=== PATIENT | female | born 1930 | race Caucasian/White ===

== ENCOUNTER 2017-10-08 10:49 | Inpatient (IN) | payer OTHER ==
[2017-10-08] MEDS ORDERED: morphine CARPU-JECT 2 MG/1 ML DISP.SYRIN IVPUSH ONE (11:34)
[2017-10-08 12:12] LABS: URINE APPEARANCE CLOUDY; URINE BILIRUBIN NEGATIVE (<2.0 mg/dL); URINE BLOOD NEGATIVE (NEGATIVE); URINE COLOR YELLOW; URINE GLUCOSE (UA) NEGATIVE (NEGATIVE); URINE KETONE NEGATIVE (NEGATIVE); URINE NITRITE NEGATIVE (NEGATIVE); URINE PROTEIN NEGATIVE (NEGATIVE); URINE UROBILINOGEN NEGATIVE mg/dL (0.2-1.0)
--- NOTE | 2017-10-08 12:14 | PDOC ---
History of Present Illness - History of Present Illness Initial Comments: 10/08/17 12:18 The patient is a 86 year old female, from assisted living facility, with a significant past medical history of atrial fibrillation, dementia, congestive heart failure, hypertension, arthritis, who presents to the emergency department via EMS with, left lower extremity pain beginning yesterday morning. The patient states the left leg pain was present upon waking up. She denies any recent injury or trauma. The patient states she noticed her lower extremities are more swollen than usual. The patient also endorses slight dyspnea and chest discomfort. As per EMS the patient stopped taking Coumadin 2 days ago secondary to elevated INR. She denies recent fevers, chills, headache or dizziness. She denies recent nausea, vomit, diarrhea or constipation. She denies recent dysuria, frequency, urgency or hematuria. Allergies: NKA <Jin Max - Last Filed: 10/08/17 15:43> - General History Source: Patient, EMS Exam Limitations: No Limitations <Jt Cortez - Last Filed: 10/08/17 16:10> - General Chief Complaint: Pain Stated Complaint: LEFT PAIN Time Seen by Provider: 10/08/17 11:10 Past History <Jin Max - Last Filed: 10/08/17 15:43> - Past Medical History Cardiac Disorders: Yes (afib) COPD: No Dementia: Yes HTN: Yes - Suicide/Smoking/Psychosocial Hx Smoking History: Never smoked Have you smoked in the past 12 months: No Information on smoking cessation initiated: No Hx Alcohol Use: No Drug/Substance Use Hx: No Substance Use Type: None <Jt Cortez - Last Filed: 10/08/17 16:10> - Past Medical History Allergies/Adverse Reactions: Allergies Allergy/AdvReac Type Severity Reaction Status Date / Time No Known Allergies Allergy Verified 10/08/17 11:05 Home Medications: Ambulatory Orders Chondroitin Sulfate A Sodium [Chondroitin Sulfate Sodium] 500 mg PO DAILY Citalopram Hydrobromide [Celexa -] 10 mg PO DAILY 10/08/17 Cyanocobalamin [Vitamin B12 -] 1,000 mcg PO DAILY 10/08/17 Digoxin [Lanoxin -] 0.125 mg PO DAILY 10/08/17 Donepezil HCl [Aricept] 10 mg PO DAILY 04/10/18 Midodrine HCl 2.5 mg PO DAILY 10/08/17 Warfarin Sodium [Coumadin] 4 mg PO DAILY 10/08/17 Review of Systems - Review of Systems Comments:: 10/08/17 12:18 GENERAL/CONSTITUTIONAL: No fever or chills. No weakness. HEAD, EYES, EARS, NOSE AND THROAT: No change in vision. No ear pain or discharge. No sore throat. CARDIOVASCULAR: +Chest discomfort. +Shortness of breath. +Leg swelling. RESPIRATORY: No cough, wheezing, or hemoptysis. GASTROINTESTINAL: No nausea, vomiting, diarrhea or constipation. GENITOURINARY: No dysuria, frequency, or change in urination. MUSCULOSKELETAL: +Left lower extremity pain. No neck or back pain. SKIN: No rash NEUROLOGIC: No headache, vertigo, loss of consciousness, or change in strength/ sensation. ENDOCRINE: No increased thirst. No abnormal weight change. HEMATOLOGIC/LYMPHATIC: No anemia, easy bleeding, or history of blood clots. ALLERGIC/IMMUNOLOGIC: No hives or skin allergy. <Jin Max - Last Filed: 10/08/17 15:43> *Physical Exam - Vital Signs Last Vital Signs Temp Pulse Resp BP Pulse Ox 97.8 F 89 22 117/89 100 10/08/17 11:06 10/08/17 11:06 10/08/17 11:06 10/08/17 11:06 10/08/17 11:06 - Physical Exam Comments: 10/08/17 12:21 GENERAL: Awake, alert, and fully oriented, in no acute distress HEAD: No signs of trauma EYES: PERRLA, EOMI, sclera anicteric, conjunctiva clear NECK: Normal ROM, supple. LUNGS: Breath sounds equal, clear to auscultation bilaterally. No wheezes, and no crackles HEART: Regular rate and rhythm, normal S1 and S2, no murmurs, rubs or gallops ABDOMEN: Soft, nontender. No guarding, no rebound. EXTREMITIES: +Left lower extremity thigh and knee tender to palpation. Full range of motion left knee and hip. Sensation intact throughout. +Left lower extremity edema. NEUROLOGICAL: Cranial nerves II through XII grossly intact. Normal speech. SKIN: Warm, Dry, normal turgor, no rashes or lesions noted. <Jin Max - Last Filed: 10/08/17 15:43> - Vital Signs Last Vital Signs Temp Pulse Resp BP Pulse Ox 97.8 F 89 22 117/89 100 10/08/17 11:06 10/08/17 11:06 10/08/17 11:06 10/08/17 11:06 10/08/17 11:06 <Jt Cortez - Last Filed: 10/08/17 16:10> Heart Score/ECG Review #1 ECG reviewed & interpreted by me at: 12:05 10/08/17 12:14 NSR 76, left axis deviation, nonspecific intraventricular block, Q wave V1-V2, no std/mi, QTC 459 msec <Jt Cortez - Last Filed: 10/08/17 16:10> ED Treatment Course - LABORATORY CBC & Chemistry Diagram: 10/08/17 12:14 10/08/17 12:14 - RADIOLOGY Radiograph Interpretation: 10/08/17 15:43 EXAM#: TYPE/EXAM: RESULT: [id number] US/DUPLEX VASCUL US-1 LEG HISTORY PROVIDED: Pain and swelling left lower extremity. Real time and doppler evaluation of the left lower extremity demonstrates the following: There is no evidence of deep venous thrombosis within the common, deep and superficial femoral veins, as well as the popliteal and posterior tibial veins. The greater saphenous vein is also patent. These veins are fully compressible, as well. There is a Jenkins's cyst within the left popliteal fossa which measures 4.2 x 2.0 x 1.2 cm. IMPRESSION: 1. No evidence of deep venous thrombosis. 2. Jenkins's cyst. Reported By: Bert Albrecht MD 10/08/17 15:44 EXAM#: TYPE/EXAM: RESULT: [id number] CT/CHEST CTA HISTORY PROVIDED: Chest pain. TECHNIQUE: Sequential axial images were obtained from the thoracic inlet through the domes of the diaphragm following the administration of intravenous contrast material. CTA pulmonary embolism protocol was utilized, including coronal and oblique coronal MIP images. There is good opacification of the central pulmonary vasculature with no filling defects suspicious for pulmonary embolism. The lung vera are free of pulmonary masses, areas of acute consolidation or pleural effusions. No mediastinal masses, fluid collections or lymphadenopathy are identified. The heart is not significantly enlarged. Evaluation of the upper abdomen demonstrates no acute abnormalities. IMPRESSION: No evidence of pulmonary embolism or acute pathology within the chest. Reported By: Bert Albrecht MD 10/08/17 15:45 EXAM#: TYPE/EXAM: RESULT: [id number] RAD/HIP PELVIS-LEFT RAD/KNEE 3 POS-LEFT HISTORY PROVIDED: Leg pain AP and lateral projections of the pelvis, left hip and knee reveals no evidence of fracture, dislocation or acute bone or joint abnormalities. Mild to moderate degenerative changes are noted about the hip and knee joints. There are calcified loose bodies within the suprapatellar bursa. IMPRESSION: Mild to moderate degenerative arthritis with no fracture or acute bone or joint abnormalities. Reported By: Bert Albrecht MD 10/08/17 15:46 EXAM#: TYPE/EXAM: RESULT: [id number] RAD/CHEST X-RAY PORTABLE* HISTORY PROVIDED: Chest pain. A single frontal portable projection of the chest at 12:12 PM is submitted. The heart size is within normal limits. Median sternotomy sutures, mediastinal surgical clips and a prosthetic aortic valve are identified. The lung vera are free of pulmonary infiltrates or pleural effusions. There is tortuosity and calcification of the thoracic aorta and degenerative changes of the thoracic spine. IMPRESSION: No acute disease. <Jin Max - Last Filed: 10/08/17 15:43> - LABORATORY CBC & Chemistry Diagram: 10/08/17 12:14 10/08/17 12:14 - RADIOLOGY Radiology Studies Ordered: Category Date Time Status CHEST CTA [CT] Stat CT Scan 10/08/17 11:33 Ordered CHEST X-RAY PORTABLE* [RAD] Stat Radiology 10/08/17 11:27 Ordered HIP & PELVIS-LEFT [RAD] Stat Radiology 10/08/17 11:33 Ordered KNEE 3 POS-LEFT [RAD] Stat Radiology 10/08/17 11:33 Ordered DUPLEX VASCUL US-1 LEG [US] Stat Ultrasound 10/08/17 11:33 Ordered <Jt Cortez - Last Filed: 10/08/17 16:10> Medical Decision Making - Medical Decision Making 10/08/17 12:07 A portion of this note was documented by scribe services under my direction. I have reviewed the details of the note, within reason, and agree with the documentation with the following case summary and management plan written by me. Patient treated in the ED. Nursing notes are reviewed and incorporated into the medical decision-making. Vital signs reviewed. Peripheral IV access obtained by the nurse, laboratory studies are drawn and sent, reviewed and interpreted by myself. Vital Signs Temp Pulse Resp BP Pulse Ox 97.8 F 89 22 117/89 100 10/08/17 11:06 10/08/17 11:06 10/08/17 11:06 10/08/17 11:06 10/08/17 11:06 86-year-old female with history of dementia, atrial fibrillation on Coumadin, digoxin, congestive heart failure, hypertension presents with left lower extremity pain and chest pain and shortness of breath. 2 days ago, the patient' s INR was reportedly elevated so the Coumadin was temporarily held for 2 days. This morning, the patient has started to complain of left lower extremity pain and swelling particularly around left knee. Denies any fevers or chills but the patient reports having chest discomfort but unable to characterize any further. Patient states that she is short of breath but thinks so secondary to her left lower extremity pain. Denies falls or traumas. Given her cardiac history, we'll need to further investigate this. We'll obtain radiographs of the left hip and left knee to rule out bony injury. We'll obtain a duplex of the left lower extremity to rule out DVT. We'll obtain a CAT scan the chest to rule out pulmonary embolism. Labs to rule out myocardial infarction. Pain control. Ultimately, the patient should be admitted to the hospital for further evaluation. 10/08/17 14:39 Pt's daughter Evelina Mei cell [phone], home [phone]. She is aware of the patient's condition and UTI. Also consents for IV contrast for CT scan. 10/08/17 16:08 CBC, BMP 10/08/17 12:14 10/08/17 12:14 CMP Sodium 142 mmol/L (136-145) 10/08/17 12:14 Potassium 3.9 mmol/L (3.5-5.1) 10/08/17 12:14 Chloride 106 mmol/L (98-107) 10/08/17 12:14 Carbon Dioxide 25 mmol/L (21-32) 10/08/17 12:14 Anion Gap 11 (8-16) 10/08/17 12:14 BUN 22 mg/dL (7-18) H 10/08/17 12:14 Creatinine 0.9 mg/dL (0.55-1.02) 10/08/17 12:14 Creat Clearance w eGFR 59.51 (>60) 10/08/17 12:14 Random Glucose 77 mg/dL (74-106) 10/08/17 12:14 Calcium 8.9 mg/dL (8.5-10.1) 10/08/17 12:14 Phosphorus 1.5 mg/dL (2.5-4.9) L 10/08/17 12:14 Magnesium 2.0 mg/dL (1.8-2.4) 10/08/17 12:14 Total Bilirubin 1.5 mg/dL (0.2-1.0) H 10/08/17 12:14 AST 29 U/L (15-37) 10/08/17 12:14 ALT 18 U/L (12-78) 10/08/17 12:14 Alkaline Phosphatase 66 U/L (45-117) 10/08/17 12:14 Creatine Kinase 157 IU/L (26-192) 10/08/17 12:14 Creatine Kinase Index 0.6 % (0.0-5.0) 10/08/17 12:14 CK-MB (CK-2) 1.083 ng/mL (0.5-3.6) 10/08/17 12:14 Troponin I < 0.02 ng/ml (0.00-0.05) 10/08/17 12:14 B-Natriuretic Peptide 426.11 pg/ml (5-450) 10/08/17 12:14 Total Protein 7.0 g/dl (6.4-8.2) 10/08/17 12:14 Albumin 3.3 g/dl (3.4-5.0) L 10/08/17 12:14 Urine Test Results Urine Color Yellow 10/08/17 12:00 Urine Appearance Cloudy 10/08/17 12:00 Urine pH 7.0 (5.0-8.0) 10/08/17 12:00 Ur Specific [place] 1.014 (1.001-1.035) 10/08/17 12:00 Urine Protein Negative (NEGATIVE) 10/08/17 12:00 Urine Glucose (UA) Negative (NEGATIVE) 10/08/17 12:00 Urine Ketones Negative (NEGATIVE) 10/08/17 12:00 Urine Blood Negative (NEGATIVE) 10/08/17 12:00 Urine Nitrite Negative (NEGATIVE) 10/08/17 12:00 Urine Bilirubin Negative (<2.0 mg/dL) 10/08/17 12:00 Ur Leukocyte Esterase 3+ (NEGATIVE) H 10/08/17 12:00 Ur Epithelial Cells Rare /HPF (FEW) 10/08/17 12:00 Urine Mucus Rare 10/08/17 12:00 Radiographs of lower extremity, chest xray reviewed. No fractures. CT chest shows no PE. UA positive for UTI. Ceftriaxone ordered. Given chest pain and UTI, decision was made to admit the patient. Case discussed with DR. Lucia who accepts patient for telemetry admission. Case discussed in detail with admitting physician including history, physical exam and ancillary studies. Admitting physician has assumed care for the patient, will follow all pending diagnostics and will complete the evaluation and treatment. <Jt Cortez - Last Filed: 10/08/17 16:10> *DC/Admit/Observation/Transfer - Attestations Scribe Attestion: 10/08/17 12:22 Documentation prepared by Jin Max, acting as internist medical doctor md for tJ Cortez MD. <Jin Max - Last Filed: 10/08/17 15:43> - Discharge Dispostion Admit: Yes <Jt Cortez - Last Filed: 10/08/17 16:10> Diagnosis at time of Disposition: UTI (urinary tract infection) Qualifiers: Urinary tract infection type: site unspecified Hematuria presence: without hematuria Qualified Code(s): N39.0 - Urinary tract infection, site not specified Chest pain Qualifiers: Chest pain type: unspecified Qualified Code(s): R07.9 - Chest pain, unspecified - Discharge Dispostion Condition at time of disposition: Stable - Referrals Referrals: ON STAFF,NOT [Primary Care Provider] - - Patient Instructions - Post Discharge Activity
[2017-10-08 12:29] LABS: URINE LEUK ESTERASE 3+ (NEGATIVE)
[2017-10-08 12:32] LABS: EPI CELLS RARE /HPF (FEW); URINE MUCUS RARE
[2017-10-08 12:44] LABS: BASO % 1.1 % (0-2.0); EOS % 1.9 % (0-4.5); HEMATOCRIT 41.8 % (32.4-45.2); LYMPH % 17.1 % (8-40); MCHC 33.4 g/dl (32.0-36.0); MEAN CELL VOLUME 92.8 fl (80-96); MEAN PLT VOLUME 8.4 fl (7.5-11.1); MONO % 9.3 % (3.8-10.2); NEUT % 70.6 % (42.8-82.8); PLATELET COUNT 168 K/MM3 (134-434); RBC 4.51 M/mm3 (3.60-5.2); RDW 15.3 % (11.6-15.6); WHITE BLOOD COUNT 9.6 K/mm3 (4.0-10.0)
[2017-10-08] MEDS ORDERED: MORPHINE SULFATE 10 MG/1 ML *VIAL ONE (12:59)
[2017-10-08 13:13] LABS: PROTHROMBIN TIME (PATIENT) 49.7 SEC (9.98-11.88)
[2017-10-08 13:15] LABS: ACTIVATED PTT 54.7 SECONDS (26.9-34.4)
[2017-10-08 13:20] LABS: INR 4.4 (0.82-1.09)
[2017-10-08 13:28] LABS: ALBUMIN 3.3 g/dl (3.4-5.0); ANION GAP 11 (8-16); BILIRUBIN,TOTAL 1.5 mg/dL (0.2-1.0); BLOOD UREA NITROGEN 22 mg/dL (7-18); CALCIUM 8.9 mg/dL (8.5-10.1); CHLORIDE 106 mmol/L (98-107); CO2 25 mmol/L (21-32); CREATININE 0.9 mg/dL (0.55-1.02); GLUCOSE,RANDOM 77 mg/dL (74-106); PHOSPHOROUS 1.5 mg/dL (2.5-4.9); SGPT/ALT 18 U/L (12-78); SODIUM 142 mmol/L (136-145)
--- NOTE | 2017-10-08 13:33 | EKG ---
Test Reason : Blood Pressure : / mmHG Vent. Rate : 076 BPM Atrial Rate : 076 BPM P-R Int : 168 ms QRS Dur : 128 ms QT Int : 408 ms P-R-T Axes : 061 -44 032 degrees QTc Int : 459 ms NORMAL SINUS RHYTHM LEFT AXIS DEVIATION NON-SPECIFIC INTRA-VENTRICULAR CONDUCTION BLOCK CANNOT RULE OUT SEPTAL INFARCT , AGE UNDETERMINED ABNORMAL ECG NO PREVIOUS ECGS AVAILABLE Confirmed by MD Jorge Alberto, [place] ([id number]) on 10/08/2017 1:33:04 PM Referred By: Confirmed By:[place] Azul MD
[2017-10-08 13:40] LABS: ALK PHOS 66 U/L (45-117); N-TERMINAL BNP 426.11 pg/ml (5-450)
[2017-10-08 13:42] LABS: POTASSIUM 3.9 mmol/L (3.5-5.1); SGOT/AST 29 U/L (15-37)
[2017-10-08] MEDS ORDERED: CEFTRIAXONE 1,000 MG in DEXTROSE 5%-WATER - 50 ML IVPB ONE (14:01)
[2017-10-08] MEDS ORDERED: CEFTRIAXONE 1 GM/50 ML BAG ONE (15:39)
--- NOTE | 2017-10-08 18:15 | PN ---
Teaching Attending Note Name of Resident: Corrine Polk ATTENDING PHYSICIAN STATEMENT I saw and evaluated the patient. I reviewed the resident's note and discussed the case with the resident. I agree with the resident's findings and plan as documented with exceptions mentioned below. SUBJECTIVE: 86 yof with PMhx of Afib on coumadin, Bioprosthetic AVR, dementia, Osteoarthritis, orthostatic hypotension, recently with supratherapeutic INR around 5 , coumdin being held comes with sudden onset of left knee pain radiating to her left thigh. Per reports in Ed, patient reported transient chest pain and dyspnea, which patient, denies but history limited by her dementia. Denies any fevers, chills, nausea, vomiting, abdominal or urinary symptoms or back pain. Currently c/o left knee pain, pain with movements and ambulation. Denies any trauma. 12 point ROS attempted but limited given her dementia. OBJECTIVE: Vital Signs Period Temp Pulse Resp BP Sys/Potts Pulse Ox Last 24 Hr 97.8 F 89 22 117/89 100 Intake & Output 10/05/17 10/06/17 10/07/17 10/08/17 23:59 23:59 23:59 23:59 Weight 135 lb GENERAL: Awake, alert, and fully oriented, in no acute distress. HEAD: Normal with no signs of trauma. EYES: Pupils equal, round and reactive to light, extraocular movements intact, sclera anicteric, conjunctiva clear. No lid lag. EARS, NOSE, THROAT: Ears normal, nares patent, oropharynx clear without exudates. Moist mucous membranes. NECK:soft, supple, no JVD LUNGS: Breath sounds equal, clear to auscultation bilaterally. No wheezes, and no crackles. No accessory muscle use. HEART: S1S2 regular ABDOMEN: Soft, nontender, not distended, normoactive bowel sounds, no guarding, no rebound, no masses MUSCULOSKELETAL: swelling on medial and posterior aspect of left knee with limited ROm, upto 30 degrees, unable to passively flex both knees, however right knee with almost full active ROm, Left knee minimal active range of motion. Tenderness on medial and posterior aspect of left knee with no overlying warmth/crepitus or erythema UPPER EXTREMITIES: 2+ pulses, warm, well-perfused. No cyanosis. No clubbing. No peripheral edema. LOWER EXTREMITIES: 2+ pulses, warm, well-perfused. No calf tenderness. No peripheral edema. LLE exam as above NEUROLOGICAL: AA, oriented to self, not to place or time though answers questions appropriately, remote memory grossly intact, non focal exam except LLE limited by pian PSYCHIATRIC: Cooperative. Good eye contact. Appropriate mood and affect. SKIN: Warm, dry, normal turgor, no rashes or lesions noted, normal capillary refill. Home Medication List Medication Instructions Recorded Confirmed Type Chondroitin Sulfate A Sodium 500 mg PO DAILY 10/08/17 10/08/17 History [Chondroitin Sulfate Sodium] Citalopram Hydrobromide [Celexa -] 10 mg PO DAILY 10/08/17 10/08/17 History Cyanocobalamin [Vitamin B12 -] 1,000 mcg PO DAILY 10/08/17 10/08/17 History Digoxin [Lanoxin -] 0.125 mg PO DAILY 10/08/17 10/08/17 History Donepezil HCl [Aricept] 10 mg PO DAILY 10/08/17 10/08/17 History Midodrine HCl 2.5 mg PO DAILY 10/08/17 10/08/17 History Warfarin Sodium [Coumadin] 4 mg PO DAILY 10/08/17 10/08/17 History Active Medications Generic Name Dose Route Start Last Admin Trade Name Freq PRN Reason Stop Dose Admin Morphine Sulfate 1 mg 10/08/17 18:18 Morphine Sulfate IVPUSH Q4H PRN PAIN LEVEL 6-10 Laboratory Results - last 24 hr 10/08/17 10/08/17 10/08/17 12:00 12:14 12:14 WBC 9.6 RBC 4.51 Hgb 14.0 Hct 41.8 MCV 92.8 MCH 31.0 MCHC 33.4 RDW 15.3 Plt Count 168 MPV 8.4 Neutrophils % 70.6 Lymphocytes % 17.1 Monocytes % 9.3 Eosinophils % 1.9 Basophils % 1.1 PT with INR 49.70 H INR 4.40 H* PTT (Actin FS) 54.7 H Sodium Potassium Chloride Carbon Dioxide Anion Gap BUN Creatinine Creat Clearance w eGFR Random Glucose Calcium Phosphorus Magnesium Total Bilirubin AST ALT Alkaline Phosphatase Creatine Kinase Creatine Kinase Index CK-MB (CK-2) Troponin I B-Natriuretic Peptide Total Protein Albumin Urine Color Yellow Urine Appearance Cloudy Urine pH 7.0 Ur Specific [place] 1.014 Urine Protein Negative Urine Glucose (UA) Negative Urine Ketones Negative Urine Blood Negative Urine Nitrite Negative Urine Bilirubin Negative Urine Urobilinogen Negative Ur Leukocyte Esterase 3+ H Urine WBC (Auto) 319 Urine RBC (Auto) 8 Ur Epithelial Cells Rare Urine Mucus Rare Digoxin 10/08/17 12:14 WBC RBC Hgb Hct MCV MCH MCHC RDW Plt Count MPV Neutrophils % Lymphocytes % Monocytes % Eosinophils % Basophils % PT with INR INR PTT (Actin FS) Sodium 142 Potassium 3.9 Chloride 106 Carbon Dioxide 25 Anion Gap 11 BUN 22 H Creatinine 0.9 Creat Clearance w eGFR 59.51 Random Glucose 77 Calcium 8.9 Phosphorus 1.5 L Magnesium 2.0 Total Bilirubin 1.5 H AST 29 ALT 18 Alkaline Phosphatase 66 Creatine Kinase 157 Creatine Kinase Index 0.6 CK-MB (CK-2) 1.083 Troponin I < 0.02 B-Natriuretic Peptide 426.11 Total Protein 7.0 Albumin 3.3 L Urine Color Urine Appearance Urine pH Ur Specific [place] Urine Protein Urine Glucose (UA) Urine Ketones Urine Blood Urine Nitrite Urine Bilirubin Urine Urobilinogen Ur Leukocyte Esterase Urine WBC (Auto) Urine RBC (Auto) Ur Epithelial Cells Urine Mucus Digoxin 0.[address]/Left knee/left hip/pelvis/CXR results and images reviewed - sternal sutures, loose calcified bodies in prepatellar bursa , arthritis EKG septal infarct, intraventricular conduction delay, NSR 76, LAD LE doppler neg left sided DVT ASSESSMENT AND PLAN: 86 yof with pMHx of Bioprosthetic AVR, AFib on coumadin, osteoarthritis, dementia, orthostatic hypotension comes with supratherapeutic INR, left knee pain and swelling, Lower uncomplicated UTI and ?transient atypical Chest pain. -Left knee pain/swelling, ?prepatellar bursitis vs ruptured fuentes's cyst, hemarthrosis secondary to unwitnessed trauma on differential but low suspicion, unlikely septic arthritis given clincally stable, absence of fevers/ leucocoytosis/current knee exam. ?gout vs pseudogout - Lower uncomplicated UTI -Coumadin coagulopathy -?Transient atypical chest pain/dyspnea, neg CTA -Afib -Bioprosthetic AVR -?CHF -Orthostatic hypotension -Osteoarthritis -Dementia Plan: Orthopedic consult, knee brace, close monitoring, standing tylenol, low dose morphine prn. PT eval. Ceftriaxone day 1, urine/blood cultures sent, follow up. Renal function stable. Telemetry, cycle troponin. Unlikely ACS. Retrieve prior information as indicated Hold coumadin, daily INR. Continue midodrine, digoxin. DVTPPX, already supratherapeutic. Dispo need for inpatient monitoring from cardiac/orthopedic standpoint, IV antibiotics and safe disposition. Total admission time spent 55 min.
[2017-10-08] MEDS ORDERED: morphine SULFATE 4 MG/ML VIAL IVPUSH PRN ×2 (18:18→18:36)
[2017-10-08] MEDS ORDERED: ACETAMINOPHEN 325 MG TABLET (FP) PO PRN (18:33)
[2017-10-08] MEDS ORDERED: NAPH,MB-DB/K PH,MBDB POWDER PACKET PO ONE (19:00)
[2017-10-08] MEDS: ACETAMINOPHEN 325 MG TABLET (FP) PO SCH (19:58)
--- NOTE | 2017-10-08 21:14 | HP ---
CHIEF COMPLAINT: L leg pain PCP: Dr. Gareth Naidu ([phone]) Virtual Recruiter: Dr. Pablo Hatch ([phone]) Vascular Surgeon: Dr. Sergei Winn ([phone]) Informant: Daughter Evelina (HCP), Patient, ED chart HISTORY OF PRESENT ILLNESS: 86yo woman with PMH of Afib (on Coumadin), Bioprosthetic AVR (2002), frontotemporal dementia, orthostatic hypotension, recurrent UTIs, and arthritis who presents from assisted living facility with complaint of 1x day L knee pain and swelling. L knee pain is worse with movement and ambulation. Pt denies any trauma or prior injury to that joint. No h/o gout or pseudogout per daughter. Patient denies any urinary symptoms, including dysuria and polyuria. Per ED chart, patient endorsed mild dyspnea and chest pain, however currently denies. No fever, chills, nausea, vomiting, or abdominal pain. ER course was notable for: (1) CT Chest/ CTA r/o PE (2) L knee and pelvis XRAYs - calcified loose bodies in suprapatellar bursa; mild to moderate arthritis, no fracture or acute joint abnormalities (3) CXR - +sternotomy wires, AVR, no focal consolidation or infiltrate (4) LE Dopplers negative for LLE DVT Recent Travel: none PAST MEDICAL HISTORY: Afib FTD orthostatic hypotension arthritis recurrent UTIs - per daughter, uncomplicated and commonly treated with Keflex PAST SURGICAL HISTORY: bovine bioprosthetic Ao valve replacement - 2002 Social History: Last week moved to assisted living facility; previously living alone at home with [employer] 10hours/day. Smoking: Never Alcohol: none Drugs: none Family History: mother - multiple TIAs/CVAs, son- recurrent DVTs Allergies: NKDA HOME MEDICATIONS: Medication Instructions Recorded Chondroitin Sulfate A Sodium 500 mg PO DAILY 10/08/17 [Chondroitin Sulfate Sodium] Citalopram Hydrobromide [Celexa -] 10 mg PO DAILY 10/08/17 Cyanocobalamin [Vitamin B12 -] 1,000 mcg PO DAILY 10/08/17 Digoxin [Lanoxin -] 0.125 mg PO DAILY 10/08/17 Donepezil HCl [Aricept] 10 mg PO DAILY 10/08/17 Midodrine HCl 2.5 mg PO DAILY 10/08/17 Warfarin Sodium [Coumadin] 4 mg PO DAILY 10/08/17 REVIEW OF SYSTEMS: unable to be assessed due to MS PHYSICAL EXAMINATION Vital Signs - 24 hr 10/08/17 10/08/17 11:06 18:37 Temperature 97.8 F 98.5 F Pulse Rate 89 Pulse Rate [ 68 Apical] Respiratory 22 18 Rate Blood Pressure 117/89 Blood Pressure 125/80 [Right Arm] O2 Sat by Pulse 100 Oximetry (%) GENERAL: awake, alert, oriented x1 (knows birthday, location: "[facility]", [facility] is "[facility]", and year ""), nad HEENT: sclera anicteric, conjunctiva clear, oropharynx clear without exudates, mmm NECK: supple, no cervical LAD LUNGS: CTAB, no wheezes or rales appreciated HEART: rrr normal s1/s2, no JVD, +well healed midline sternal scar ABDOMEN: soft, NTND, +bowel sounds : no CVA or suprapubic ttp MUSCULOSKELETAL: L knee medial and posterior swelling, ttp in posterior fossa and lateral/medial patella, no erythema, warmth or effusion appreciated, L knee limited ROM due pain, R knee/hip ROM intact UPPER EXTREMITIES: 2+ radial pulses, wwp, no edema LOWER EXTREMITIES: 2+ DP pulses, wwp, no calf tenderness, no edema NEUROLOGICAL: Cranial nerves II-XII intact. sensation intact in distal extremities; motor strength 5/5 in RUE/RLE and LUE, refused to move LLE due to pain PSYCHIATRIC: +Confabulations, Cooperative. Good eye contact. Appropriate mood and affect. CBC, BMP 10/08/17 12:14 10/08/17 12:14 Hepatic Panel Total Bilirubin 1.5 mg/dL (0.2-1.0) H 10/08/17 12:14 AST 29 U/L (15-37) 10/08/17 12:14 ALT 18 U/L (12-78) 10/08/17 12:14 Alkaline Phosphatase 66 U/L (45-117) 10/08/17 12:14 Albumin 3.3 g/dl (3.4-5.0) L 10/08/17 12:14 Troponin, BNP 10/08/17 10/08/17 12:14 21:20 Troponin I < 0.02 < 0.02 B-Natriuretic Peptide 426.11 INR, PTT INR 4.40 (0.82-1.09) H* 10/08/17 12:14 Urine Test Results Urine Color Yellow 10/08/17 12:00 Urine Appearance Cloudy 10/08/17 12:00 Urine pH 7.0 (5.0-8.0) 10/08/17 12:00 Ur Specific [place] 1.014 (1.001-1.035) 10/08/17 12:00 Urine Protein Negative (NEGATIVE) 10/08/17 12:00 Urine Glucose (UA) Negative (NEGATIVE) 10/08/17 12:00 Urine Ketones Negative (NEGATIVE) 10/08/17 12:00 Urine Blood Negative (NEGATIVE) 10/08/17 12:00 Urine Nitrite Negative (NEGATIVE) 10/08/17 12:00 Urine Bilirubin Negative (<2.0 mg/dL) 10/08/17 12:00 Ur Leukocyte Esterase 3+ (NEGATIVE) H 10/08/17 12:00 Ur Epithelial Cells Rare /HPF (FEW) 10/08/17 12:00 Urine Mucus Rare 10/08/17 12:00 MICRO: Urine and blood cultures pending EKG: septal infarct, intraventricular conduction delay, NSR 76, LAD, QTc 459 IMAGING: see above ED course Active Medications Acetaminophen (Tylenol -) 650 mg PO Q6HPO [facility] Last Admin: 10/08/17 19:58 Dose: Not Given Citalopram Hydrobromide (Celexa -) 10 mg PO DAILY [facility] Cyanocobalamin (Vitamin B12 -) 1,000 mcg PO DAILY [facility] Digoxin (Lanoxin -) 0.125 mg PO DAILY [facility] Donepezil HCl (Aricept -) 10 mg PO HS [facility] Ceftriaxone Sodium 1 gm/ (Dextrose) 50 mls @ 100 mls/hr IVPB DAILY [facility] Midodrine (Proamatine -) 2.5 mg PO DAILY [facility] Morphine Sulfate (Morphine Sulfate) 1 mg IVPUSH Q4H PRN Reason: PAIN LEVEL 6-10 ASSESSMENT/PLAN: 86yo woman with PMH of Afib (on coumadin), frontotemporal dementia, arthriitis, orthostatic hypotension who presents with acute onset L knee pain and found to have supratherapeutic INR and uncomplicated UTI. #L knee pain/swelling, unclear etiology, ddx prepatellar bursitis vs ruptured fuentes's cyst, hemarthosis; septic arthritis lower on differential given clinical s/s; similarly, no h/o gout or pseudogout -Ortho consult -Knee brace -Tylenol 650mg Q6H JAGDISH for pain -Morphine 1mg Q6H PRN for pain #atypical chest pain, denies any current symptoms, overall low suspicion for acs -will repeat trops x2 (1st trop negative) -pain control as above #supratherapeutic INR likely due to dietary changes due to recent move (at home was eating greens regularly) -Daily INRs, goal 2-3 -will restart at 3mg daily (was on home 4mg qd) #Afib on Coumadin -c/w digoxin 0.125mg #UTI -f/u urine and blood cultures -Ceftriaxone 1gm daily, Day 1 #Frontotemporal dementia, at presumed baseline -c/w donepezil and celexa #orthostatic hypotension - c/w home midodrine #PT evaluation #FEN PO intake phosphate repleted Regular diet #DVT PPX - supratherapeutic INR #DISPO: m/s, may need short-term SNF pending PT eval FULL code HCP (daughter Evelina) planning to review [facility] and make DNR/DNI plan d/w attending Dr. Emelia Polk MD PGY1- Internal Medicine Visit type - Emergency Visit Emergency Visit: Yes ED Registration Date: 10/08/17 Care time: The patient presented to the Emergency Department on the above date and was hospitalized for further evaluation of their emergent condition. - New Patient This patient is new to me today: Yes Date on this admission: 10/09/17 - Critical Care Critical Care patient: No Hospitalist Screening - Colonoscopy Questionnaire Colonoscopy Questionnaire: Colonoscopy Questionnaire - Patient: 50 - 75 years old and never had a screening colonoscopy: No History of colon or rectal polyps, or CA: Unknown History of IBD, Crohn's disease or UC: Unknown History of abdominal radiation therapy as a child: Unknown - Relative: 1 with colon or rectal CA, or polyps at age 60 or younger: Unknown Colon or rectal CA diagnosed at age 45 or younger: Unknown Multiple relatives with colon or rectal CA: Unknown - Outcome: Screening Result: Negative Screen
[2017-10-08] MEDS ORDERED: DONEPEZIL HCL 5 MG TABLET (FP) ONE ×2 (21:29→21:35)
[2017-10-08] MEDS ORDERED: DONEPEZIL HCL 10 MG TABLET (FP) PO ONE (21:40)
[2017-10-09] MEDS: ACETAMINOPHEN 325 MG TABLET (FP) PO SCH ×5 (01:00→18:24)
[2017-10-09] MEDS ORDERED: ACETAMINOPHEN 325 MG TABLET (FP) ONE (05:07)
[2017-10-09 07:47] LABS: BASO % 0.5 % (0-2.0); HEMATOCRIT 39.4 % (32.4-45.2); HEMOGLOBIN 13.5 GM/dL (10.7-15.3); LYMPH % 10.1 % (8-40); MCH 31.3 pg (25.7-33.7); MCHC 34.2 g/dl (32.0-36.0); MEAN CELL VOLUME 91.6 fl (80-96); MEAN PLT VOLUME 8.7 fl (7.5-11.1); MONO % 10.9 % (3.8-10.2); NEUT % 78.5 % (42.8-82.8); PLATELET COUNT 160 K/MM3 (134-434); RDW 15.4 % (11.6-15.6); WHITE BLOOD COUNT 9.9 K/mm3 (4.0-10.0)
[2017-10-09 07:52] LABS: INR 3.36 (0.82-1.09)
[2017-10-09 08:06] LABS: ALBUMIN 3.2 g/dl (3.4-5.0); ANION GAP 13 (8-16); BILIRUBIN,TOTAL 1.8 mg/dL (0.2-1.0); BLOOD UREA NITROGEN 21 mg/dL (7-18); CALCIUM 8.3 mg/dL (8.5-10.1); CHLORIDE 106 mmol/L (98-107); CO2 23 mmol/L (21-32); GLUCOSE,RANDOM 125 mg/dL (74-106); POTASSIUM 3.6 mmol/L (3.5-5.1); SGOT/AST 17 U/L (15-37); SGPT/ALT 15 U/L (12-78); SODIUM 142 mmol/L (136-145); TOT PROT 6.6 g/dl (6.4-8.2)
[2017-10-09 08:08] LABS: ALK PHOS 64 U/L (45-117)
[2017-10-09] MEDS ORDERED: DIGOXIN 0.125 MG TABLET (FP) PO SCH (10:00)
[2017-10-09] MEDS ORDERED: CYANOCOBALAMIN 1,000 MCG TABLET (FP) PO SCH (10:00)
[2017-10-09] MEDS ORDERED: CEFTRIAXONE 1 GM in DEXTROSE 5%-WATER - 50 ML IVPB SCH (10:00)
[2017-10-09] MEDS ORDERED: CHONDROITIN SULFATE A SODIUM PO SCH (10:00)
[2017-10-09] MEDS ORDERED: CITALOPRAM HYDROBROMIDE 10 MG TABLET (FP) PO SCH (10:00)
[2017-10-09] MEDS ORDERED: MIDODRINE HCL 2.5 MG TABLET PO SCH (10:00)
[2017-10-09] MEDS ORDERED: CEFTRIAXONE 1 GM/50 ML BAG ONE (13:35)
[2017-10-09] MEDS ORDERED: morphine SULFATE 4 MG/ML VIAL IVPUSH PRN (14:06)
[2017-10-09 14:59] VITALS: BMI 22.7
--- NOTE | 2017-10-09 15:07 | PN ---
Teaching Attending Note Name of Resident: Corrine Polk ATTENDING PHYSICIAN STATEMENT I saw and evaluated the patient. I reviewed the resident's note and discussed the case with the resident. I agree with the resident's findings and plan as documented with exceptions below. SUBJECTIVE: Patient seen and examined. left knee pain, mainly when touched on moved, no complaints otherwise. OBJECTIVE: Vital Signs Period Temp Pulse Resp BP Sys/Potts Pulse Ox Last 24 Hr 97.8 F-98.5 F 68-80 16-20 122-127/73-80 95-98 Intake & Output 10/06/17 10/07/17 10/08/17 10/09/17 23:59 23:59 23:59 23:59 Weight 135 lb 141 lb General: sitting in stretcher in no acute distress Extremities: left knee medial and posterior swelling with tenderness and limitation in ROM unchanged, positive pulses Abdomen: soft, NT, no suprapubic or CVA tenderness Home Medication List Medication Instructions Recorded Confirmed Type Chondroitin Sulfate A Sodium 500 mg PO DAILY 10/08/17 10/08/17 History [Chondroitin Sulfate Sodium] Citalopram Hydrobromide [Celexa -] 10 mg PO DAILY 10/08/17 10/08/17 History Cyanocobalamin [Vitamin B12 -] 1,000 mcg PO DAILY 10/08/17 10/08/17 History Digoxin [Lanoxin -] 0.125 mg PO DAILY 10/08/17 10/08/17 History Donepezil HCl [Aricept] 10 mg PO DAILY 10/08/17 10/08/17 History Midodrine HCl 2.5 mg PO DAILY 10/08/17 10/08/17 History Warfarin Sodium [Coumadin] 4 mg PO DAILY 10/08/17 10/08/17 History Active Medications Generic Name Dose Route Start Last Admin Trade Name Freq PRN Reason Stop Dose Admin Acetaminophen 650 mg 10/08/17 19:15 10/09/17 14:55 Tylenol - PO 650 mg Q6HPO [facility] Administration Citalopram Hydrobromide 10 mg 10/09/17 10:00 10/09/17 13:00 Celexa - PO 10 mg DAILY [facility] Administration Cyanocobalamin 1,000 mcg 10/09/17 10:00 10/09/17 13:00 Vitamin B12 - PO 1,000 mcg DAILY [facility] Administration Digoxin 0.125 mg 10/09/17 10:00 10/09/17 13:00 Lanoxin - PO 0.125 mg DAILY [facility] Administration Donepezil HCl 10 mg 10/09/17 22:00 Aricept - PO HS [facility] Ceftriaxone Sodium 1 gm/ 50 mls @ 100 mls/hr 10/09/17 10:00 10/09/17 13:30 Dextrose IVPB 100 mls/hr DAILY [facility] Administration Midodrine 2.5 mg 10/09/17 10:00 10/09/17 13:00 Proamatine - PO 2.5 mg DAILY [facility] Administration Morphine Sulfate 1 mg 10/09/17 14:06 Morphine Sulfate IVPUSH Q4H PRN PAIN LEVEL 7 - 10 Laboratory Results - last 24 hr 10/08/17 10/09/17 10/09/17 21:20 06:43 06:43 WBC 9.9 RBC 4.30 Hgb 13.5 Hct 39.4 MCV 91.6 MCH 31.3 MCHC 34.2 RDW 15.4 Plt Count 160 MPV 8.7 Neutrophils % 78.5 Lymphocytes % 10.1 D Monocytes % 10.9 H Eosinophils % 0.0 D Basophils % 0.5 PT with INR 38.00 H INR 3.36 H Sodium Potassium Chloride Carbon Dioxide Anion Gap BUN Creatinine Creat Clearance w eGFR Random Glucose Calcium Total Bilirubin AST ALT Alkaline Phosphatase Troponin I < 0.02 Total Protein Albumin 10/09/17 06:43 WBC RBC Hgb Hct MCV MCH MCHC RDW Plt Count MPV Neutrophils % Lymphocytes % Monocytes % Eosinophils % Basophils % PT with INR INR Sodium 142 Potassium 3.6 Chloride 106 Carbon Dioxide 23 Anion Gap 13 BUN 21 H Creatinine 1.0 Creat Clearance w eGFR 52.69 Random Glucose 125 H Calcium 8.3 L Total Bilirubin 1.8 H AST 17 ALT 15 Alkaline Phosphatase 64 Troponin I < 0.02 Total Protein 6.6 Albumin 3.2 L Microbiology 10/08/17 12:00 Urine - Urine Clean Catch Urine Culture - Preliminary Lactose Fermenting Neg Bacilli ASSESSMENT AND PLAN: 86 yof with pMHx of Bioprosthetic AVR, AFib on coumadin, osteoarthritis, dementia, orthostatic hypotension comes with supratherapeutic INR, left knee pain and swelling, Lower uncomplicated UTI and ?transient atypical Chest pain. -Left knee pain/swelling, ?prepatellar bursitis vs ruptured fuentes's cyst, hemarthrosis secondary to unwitnessed trauma on differential but low suspicion, unlikely septic arthritis given clincally stable, absence of fevers/ leucocoytosis/current knee exam. ?gout vs pseudogout - Lower uncomplicated UTI -Coumadin coagulopathy -?Transient atypical chest pain/dyspnea, neg CTA -Afib -Bioprosthetic AVR -?CHF -Orthostatic hypotension -Osteoarthritis -Dementia Plan: follow up orthopedic consult. MRI left knee. Pain control with tylenol/low dose morphine prn. PT eval when symptoms improved and pending ortho recs. Ceftriaxone day 2, urine cultures noted, blood cx neg so far. ACS ruled out, was very low suspicion. d/c telemetry. CTA/LE dopplers neg. ( daughter in law at bedside reports strong DVT/PE history in son). INR trending down, hold coumadin today. Continue midodrine, digoxin. DVTPPX, already supratherapeutic. Dispo will need PT eval in 24 hours pending symptoms, MRI knee and ortho recs and dispo planning accordingly. Likely [facility]. Plan discussed with patient and daughter in law at bedside in detail, all questions answered.
[2017-10-09] MEDS ORDERED: PNEUMOC 13-VAL CONJ-DIP CRM/PF 0.5 ML DISP.SYRIN IM ONE (15:08)
--- NOTE | 2017-10-09 15:41 | PN ---
Physical Exam: SUBJECTIVE: Patient seen and examined in AM. No events overnight. Continues to have L knee pain and swelling; Denies any chest pain, abdominal pain, fever, chills. OBJECTIVE: Vital Signs Period Temp Pulse Resp BP Sys/Potts Pulse Ox Last 24 Hr 97.8 F-98.5 F 68-80 16-20 122-127/73-80 95-98 General: aaox1 (knows birthday), lying comfortably in bed, nad Lungs: CTAB, no wheezes or rales appreciated Heart: RRR, normal s1/s2 Abd: soft, ntnd, positive BS : no suprapubic ttp MSK: L knee medial and posterior swelling, ttp in posterior fossa and lateral/ medial patella, no erythema, warmth or effusion appreciated, L knee limited ROM due pain, unchanged from yesterday LOWER EXTREMITIES: 2+ DP pulses, wwp, no calf tenderness, no edema CBC, BMP 10/09/17 06:43 10/09/17 06:43 Hepatic Panel Total Bilirubin 1.8 mg/dL (0.2-1.0) H 10/09/17 06:43 AST 17 U/L (15-37) 10/09/17 06:43 ALT 15 U/L (12-78) 10/09/17 06:43 Alkaline Phosphatase 64 U/L (45-117) 10/09/17 06:43 Albumin 3.2 g/dl (3.4-5.0) L 10/09/17 06:43 Troponin, BNP 10/08/17 10/09/17 21:20 06:43 Troponin I < 0.02 < 0.02 INR, PTT INR 3.36 (0.82-1.09) H 10/09/17 06:43 Microbiology 10/08/17 14:47 Blood - Peripheral Venous Blood Culture - Preliminary NO GROWTH OBTAINED AFTER 24 HOURS, INCUBATION TO CONTINUE FOR 4 DAYS. 10/08/17 15:46 Blood - Peripheral Venous Blood Culture - Preliminary NO GROWTH OBTAINED AFTER 24 HOURS, INCUBATION TO CONTINUE FOR 4 DAYS. 10/08/17 12:00 Urine - Urine Clean Catch Urine Culture - Preliminary Lactose Fermenting Neg Bacilli Active Medications Acetaminophen (Tylenol -) 650 mg PO Q6HPO [facility] Citalopram Hydrobromide (Celexa -) 10 mg PO DAILY [facility] Cyanocobalamin (Vitamin B12 -) 1,000 mcg PO DAILY [facility] Digoxin (Lanoxin -) 0.125 mg PO DAILY [facility] Donepezil HCl (Aricept -) 10 mg PO HS [facility] Ceftriaxone Sodium 1 gm/ (Dextrose) 50 mls @ 100 mls/hr IVPB DAILY [facility] Midodrine (Proamatine -) 2.5 mg PO DAILY [facility] Morphine Sulfate (Morphine Sulfate) 1 mg IVPUSH Q4H PRN PRN Reason: PAIN LEVEL 7 - 10 Warfarin Sodium (Coumadin -) 3 mg PO DAILY@1800 [facility] ASSESSMENT/PLAN: 86yo woman with PMH of Afib (on coumadin), frontotemporal dementia, arthriitis, orthostatic hypotension who presents with acute onset L knee pain and found to have supratherapeutic INR and uncomplicated UTI. #L knee pain/swelling, unclear etiology, ddx prepatellar bursitis vs ruptured fuentes's cyst, hemarthosis; septic arthritis lower on differential given clinical s/s; similarly, no h/o gout or pseudogout -Ortho consult -Tylenol 650mg Q6H JAGDISH for pain -Morphine 1mg Q6H PRN for pain #atypical chest pain, ACS ruled out as Troponins trended flat with no acute EKG ischemic findings #supratherapeutic INR likely due to recent dietary changes/move -Daily INRs, goal 2-3 -will restart at 3mg daily (was on home 4mg qd) #Afib on Coumadin -c/w digoxin 0.125mg #UTI -Urine Cx, >100K lactose fermenting GNB -blood cx NGTD x24H -Ceftriaxone 1gm daily, Day 2 #Frontotemporal dementia, at presumed baseline -c/w donepezil and celexa #orthostatic hypotension - c/w home midodrine #FEN PO intake lytes wnl Regular diet #DVT PPX - supratherapeutic INR #PT evaluation #Palliative care consult to complete [facility] #DISPO: m/s, anticipate short-term SNF pending PT eval DNR/DNII Visit type - Emergency Visit Emergency Visit: No - New Patient This patient is new to me today: No - Critical Care Critical Care patient: No
--- NOTE | 2017-10-09 19:18 | CONSULT ---
Consult - text type - Consultation Consultation Note: Asked to evaluate this 86F with PMH significant for Afib (on Coumadin)/ Bioprosthetic AVR (2002)/frontotemporal dementia/orthostatic hypotension/ recurrent UTIs/arthritis for atraumatic left knee pain and swelling. She lives in assisted living. PMH: as above Meds: reviewed in chart All: NKDA SH: lives in assisted living PE: awake, alert, and cooperative. Sitting comfortably in bed. follows commands. Left knee exam significant for suprapatellar effusion and tenderness. No redness or warmth. No clear instability Distal pulses 2+. Calf soft. Otherwise b/l UE neuro exam intact without pain b/l hip prom painfree no peripheral edema. Labs: WBC9.9 INR 4.4 Xrays: significant OA of left knee. No fracture Imp: Left knee likely hemarthrosis (due to supratherapeutic INR) with pain -offered to perform arthrocenthesis for pain relief, however patient refusing -recommend ice and elevation and oral analgesics -PT consult, may WBAT -reconsult PRN
[2017-10-09] MEDS ORDERED: DONEPEZIL HCL 10 MG TABLET (FP) PO SCH (22:00)
[2017-10-09] MEDS: DONEPEZIL HCL 10 MG TABLET (FP) PO SCH (23:01)
[2017-10-10] MEDS: ACETAMINOPHEN 325 MG TABLET (FP) PO SCH ×4 (06:39→17:36)
[2017-10-10 07:48] LABS: BASO % 0.9 % (0-2.0); EOS % 1.3 % (0-4.5); HEMATOCRIT 41.2 % (32.4-45.2); HEMOGLOBIN 13.9 GM/dL (10.7-15.3); LYMPH % 14.2 % (8-40); MCH 31.2 pg (25.7-33.7); MCHC 33.7 g/dl (32.0-36.0); MEAN CELL VOLUME 92.5 fl (80-96); MEAN PLT VOLUME 8.7 fl (7.5-11.1); MONO % 12.5 % (3.8-10.2); NEUT % 71.1 % (42.8-82.8); PLATELET COUNT 156 K/MM3 (134-434); RBC 4.45 M/mm3 (3.60-5.2); RDW 15.4 % (11.6-15.6); WHITE BLOOD COUNT 9.2 K/mm3 (4.0-10.0)
[2017-10-10 08:07] LABS: INR 2.84 (0.82-1.09); PROTHROMBIN TIME (PATIENT) 32.1 SEC (9.98-11.88)
--- NOTE | 2017-10-10 08:23 | PN ---
Physical Exam: SUBJECTIVE: Patient seen and examined. Ortho attempted to tap knee, but pt refused. Continues to have L knee pain/swelling, slightly improved today. Offers no other complaints. OBJECTIVE: Vital Signs Period Temp Pulse Resp BP Sys/Potts Pulse Ox Last 24 Hr 97.8 F-100.6 F 72-80 16-20 122-146/64-80 95 General: aaox1 (knows birthday), lying comfortably in bed, nad Lungs: CTAB, no wheezes or rales appreciated Heart: RRR, normal s1/s2 Abd: soft, ntnd, positive BS : no suprapubic ttp MSK: L knee medial and posterior swelling; posterior fossa and lateral/medial patella, less ttp today LOWER EXTREMITIES: 2+ DP pulses, wwp, no calf tenderness, no edema CBC, BMP 10/10/17 06:00 10/09/17 06:43 Hepatic Panel Total Bilirubin 1.8 mg/dL (0.2-1.0) H 10/09/17 06:43 AST 17 U/L (15-37) 10/09/17 06:43 ALT 15 U/L (12-78) 10/09/17 06:43 Alkaline Phosphatase 64 U/L (45-117) 10/09/17 06:43 Albumin 3.2 g/dl (3.4-5.0) L 10/09/17 06:43 Microbiology 10/08/17 15:46 Blood - Peripheral Venous Blood Culture - Preliminary NO GROWTH OBTAINED AFTER 48 HOURS, INCUBATION TO CONTINUE FOR 3 DAYS. 10/08/17 14:47 Blood - Peripheral Venous Blood Culture - Preliminary NO GROWTH OBTAINED AFTER 48 HOURS, INCUBATION TO CONTINUE FOR 3 DAYS. 10/08/17 12:00 Urine - Urine Clean Catch Urine Culture - Final Escherichia Coli Active Medications Acetaminophen (Tylenol -) 650 mg PO Q6HPO [facility] Last Admin: 10/10/17 12:11 Dose: 650 mg Citalopram Hydrobromide (Celexa -) 10 mg PO DAILY [facility] Last Admin: 10/10/17 09:37 Dose: 10 mg Cyanocobalamin (Vitamin B12 -) 1,000 mcg PO DAILY [facility] Last Admin: 10/10/17 09:38 Dose: 1,000 mcg Digoxin (Lanoxin -) 0.125 mg PO DAILY [facility] Last Admin: 04/12/18 09:37 Dose: 0.125 mg Donepezil HCl (Aricept -) 10 mg PO HS [facility] Last Admin: 10/09/17 23:01 Dose: 10 mg Ceftriaxone Sodium 1 gm/ (Dextrose) 50 mls @ 100 mls/hr IVPB DAILY [facility] Last Admin: 10/10/17 09:37 Dose: 100 mls/hr Midodrine (Proamatine -) 2.5 mg PO DAILY [facility] Last Admin: 10/10/17 09:37 Dose: 2.5 mg Morphine Sulfate (Morphine Sulfate) 1 mg IVPUSH Q4H PRN PRN Reason: PAIN LEVEL 7 - 10 ASSESSMENT/PLAN: 86yo woman with PMH of Afib (on coumadin), frontotemporal dementia, arthriitis, orthostatic hypotension who presents with acute onset L knee pain and found to have supratherapeutic INR and uncomplicated UTI. #L knee pain/swelling, unclear etiology, ddx prepatellar bursitis vs ruptured fuentes's cyst, hemarthosis; septic arthritis lower on differential given clinical s/s; similarly, no h/o gout or pseudogout -Ortho consult: offered tap last night, but pt refused; Okay to weight-bear, keep leg elevated + ice pack -Tylenol 650mg Q6H JAGDISH for pain -Morphine 1mg Q6H PRN for pain #atypical chest pain, ACS ruled out as Troponins trended flat with no acute EKG ischemic findings #supratherapeutic INR, therapeutic today -Daily INRs, goal 2-3 -will restart at 3mg daily (was on home 4mg qd) #Afib on Coumadin -c/w digoxin 0.125mg #UTI -Urine Cx >100K E. coli sensitive to Ceftriaxone -blood cx NGTD x48H -Ceftriaxone 1gm daily, Day 3 #Frontotemporal dementia, at presumed baseline -c/w donepezil and celexa #orthostatic hypotension - c/w home midodrine #FEN PO intake lytes wnl Regular diet #DVT PPX - on Warfarin #PT evaluation #DISPO: m/s, anticipate d/c in 24-48hours to SNF DNR/DNI Visit type - Emergency Visit Emergency Visit: No - New Patient This patient is new to me today: No - Critical Care Critical Care patient: No
--- NOTE | 2017-10-10 09:03 | PN ---
Teaching Attending Note Name of Resident: Corrine Polk ATTENDING PHYSICIAN STATEMENT I saw and evaluated the patient. I reviewed the resident's note and discussed the case with the resident. I agree with the resident's findings and plan as documented with exceptions below. SUBJECTIVE: Patient seen and examined. left knee pain improved, no new complaints. OBJECTIVE: Vital Signs Period Temp Pulse Resp BP Sys/Potts Pulse Ox Last 24 Hr 97.8 F-100.6 F 72-80 16-20 122-146/64-80 95 Intake & Output 10/07/17 10/08/17 10/09/17 10/10/17 23:59 23:59 23:59 23:59 Intake Total 120 200 Balance 120 200 Weight 135 lb 141 lb General lying in bed in no acute distress Extremities left knee swelling with some improvement, mildly improved ROM, no new warmth or erythema noted Abdomen soft, obese, NT Home Medication List Medication Instructions Recorded Confirmed Type Chondroitin Sulfate A Sodium 500 mg PO DAILY 10/08/17 10/08/17 History [Chondroitin Sulfate Sodium] Citalopram Hydrobromide [Celexa -] 10 mg PO DAILY 10/08/17 10/08/17 History Cyanocobalamin [Vitamin B12 -] 1,000 mcg PO DAILY 10/08/17 10/08/17 History Digoxin [Lanoxin -] 0.125 mg PO DAILY 10/08/17 10/08/17 History Donepezil HCl [Aricept] 10 mg PO DAILY 10/08/17 10/08/17 History Midodrine HCl 2.5 mg PO DAILY 10/08/17 10/08/17 History Warfarin Sodium [Coumadin] 4 mg PO DAILY 10/08/17 10/08/17 History Active Medications Generic Name Dose Route Start Last Admin Trade Name Freq PRN Reason Stop Dose Admin Acetaminophen 650 mg 10/09/17 18:00 10/10/17 06:39 Tylenol - PO 650 mg Q6HPO JAGDISH Administration Citalopram Hydrobromide 10 mg 10/10/17 10:00 Celexa - PO DAILY JAGDISH Cyanocobalamin 1,000 mcg 10/10/17 10:00 Vitamin B12 - PO DAILY JAGDISH Digoxin 0.125 mg 10/10/17 10:00 Lanoxin - PO DAILY JAGDISH Donepezil HCl 10 mg 10/09/17 22:00 10/09/17 23:01 Aricept - PO 10 mg HS JAGDISH Administration Ceftriaxone Sodium 1 gm/ 50 mls @ 100 mls/hr 10/10/17 10:00 Dextrose IVPB DAILY [facility] Midodrine 2.5 mg 10/10/17 10:00 Proamatine - PO DAILY [facility] Morphine Sulfate 1 mg 10/09/17 14:06 Morphine Sulfate IVPUSH Q4H PRN PAIN LEVEL 7 - 10 Warfarin Sodium 3 mg 10/10/17 18:00 Coumadin - PO DAILY@1800 [facility] Laboratory Results - last 24 hr 10/09/17 10/10/17 10/10/17 18:05 06:00 06:00 WBC 9.2 RBC 4.45 Hgb 13.9 Hct 41.2 MCV 92.5 MCH 31.2 MCHC 33.7 RDW 15.4 Plt Count 156 MPV 8.7 Neutrophils % 71.1 Lymphocytes % 14.2 D Monocytes % 12.5 H Eosinophils % 1.3 D Basophils % 0.9 PT with INR 32.10 H INR 2.84 H POC Glucometer 119 10/10/17 06:27 WBC RBC Hgb Hct MCV MCH MCHC RDW Plt Count MPV Neutrophils % Lymphocytes % Monocytes % Eosinophils % Basophils % PT with INR INR POC Glucometer 118 Microbiology 10/08/17 14:47 Blood - Peripheral Venous Blood Culture - Preliminary NO GROWTH OBTAINED AFTER 24 HOURS, INCUBATION TO CONTINUE FOR 4 DAYS. 10/08/17 15:46 Blood - Peripheral Venous Blood Culture - Preliminary NO GROWTH OBTAINED AFTER 24 HOURS, INCUBATION TO CONTINUE FOR 4 DAYS. 10/08/17 12:00 Urine - Urine Clean Catch Urine Culture - Preliminary Lactose Fermenting Neg Bacilli ASSESSMENT AND PLAN: 86 yof with pMHx of Bioprosthetic AVR, AFib on coumadin, osteoarthritis, dementia, orthostatic hypotension comes with supratherapeutic INR, left knee pain and swelling, Lower uncomplicated UTI and ?transient atypical Chest pain. -Left knee pain/swelling, ?prepatellar bursitis vs ruptured fuentes's cyst, hemarthrosis secondary to unwitnessed trauma on differential but low suspicion, unlikely septic arthritis given clincally stable, absence of fevers/ leucocoytosis/current knee exam. ?gout vs pseudogout - Lower uncomplicated UTI -Coumadin coagulopathy -?Transient atypical chest pain/dyspnea, neg CTA -Afib -Bioprosthetic AVR -?CHF -Orthostatic hypotension -Osteoarthritis -Dementia Plan: Orthopedic consult noted, patient agreable to arthrocentesis if 'will help'. Currently symptoms have improved, ice pack/pain control/PT eval. For MRI left knee, but will hold if continues to improve. Follow up with orthopedic if tap still indicated . PT eval when symptoms improved and pending ortho recs. Ceftriaxone day 3, urine cultures noted, blood cx neg so far. ACS ruled out, was very low suspicion. CTA/LE dopplers neg. (daughter in law at bedside reports strong DVT/PE history in son). INR trending down, resume coumadin with close monitoring. Continue midodrine, digoxin. DVTPPX, on coumadin Dispo PT eval, anticipate will need CUCA on d/c DNR/DNi as confirmed with daughter who is HCP.
[2017-10-10] MEDS ORDERED: PT OWN MED DRAWER 7, Y5N ONE (09:19)
[2017-10-10] MEDS ORDERED: cefTRIAXone SODIUM 1 GM VIAL ONE (09:20)
[2017-10-10] MEDS ORDERED: DEXTROSE 5%-WATER - 50 ML IVPB ONE (09:20)
[2017-10-10] MEDS: DIGOXIN 0.125 MG TABLET (FP) PO SCH (09:37)
[2017-10-10] MEDS: CEFTRIAXONE 1 GM in DEXTROSE 5%-WATER - 50 ML IVPB SCH (09:37)
[2017-10-10] MEDS: CITALOPRAM HYDROBROMIDE 10 MG TABLET (FP) PO SCH (09:37)
[2017-10-10] MEDS: MIDODRINE HCL 2.5 MG TABLET PO SCH (09:37)
[2017-10-10] MEDS: CYANOCOBALAMIN 1,000 MCG TABLET (FP) PO SCH (09:38)
[2017-10-10] MEDS ORDERED: WARFARIN NA 2 MG TABLET (UD) PO SCH (18:00)
[2017-10-10] MEDS ORDERED: WARFARIN NA 3 MG TABLET PO SCH (18:00)
[2017-10-10] MEDS: DONEPEZIL HCL 10 MG TABLET (FP) PO SCH (21:35)
[2017-10-11] MEDS: ACETAMINOPHEN 325 MG TABLET (FP) PO SCH ×3 (00:05→12:13)
--- NOTE | 2017-10-11 08:18 | PN ---
Physical Exam: SUBJECTIVE: Patient seen and examined OBJECTIVE: Vital Signs Period Temp Pulse Resp BP Sys/Potts Pulse Ox Last 24 Hr 98.4 F-98.7 F 64-85 20-20 106-128/63-70 95-96 GENERAL: The patient is awake, alert, and fully oriented, in no acute distress. HEAD: Normal with no signs of trauma. EYES: PERRL, extraocular movements intact, sclera anicteric, conjunctiva clear. No ptosis. ENT: Ears normal, nares patent, oropharynx clear without exudates, moist mucous membranes. NECK: Trachea midline, full range of motion, supple. LUNGS: Breath sounds equal, clear to auscultation bilaterally, no wheezes, no crackles, no accessory muscle use. HEART: Regular rate and rhythm, S1, S2 without murmur, rub or gallop. ABDOMEN: Soft, nontender, nondistended, normoactive bowel sounds, no guarding, no rebound, no hepatosplenomegaly, no masses. EXTREMITIES: 2+ pulses, warm, well-perfused, no edema. NEUROLOGICAL: Cranial nerves II through XII grossly intact. Normal speech, gait not observed. PSYCH: Normal mood, normal affect. SKIN: Warm, dry, normal turgor, no rashes or lesions noted Laboratory Results - last 24 hr 10/10/17 10/10/17 10/10/17 06:00 11:54 17:35 PT with INR 32.10 H INR 2.84 H POC Glucometer 101 101 10/11/17 06:17 PT with INR INR POC Glucometer 98 Active Medications Generic Name Dose Route Start Last Admin Trade Name Nohemy PRN Reason Stop Dose Admin Acetaminophen 650 mg 10/09/17 18:00 10/11/17 06:07 Tylenol - PO 650 mg Q6HPO JAGDISH Administration Citalopram Hydrobromide 10 mg 10/10/17 10:00 10/10/17 09:37 Celexa - PO 10 mg DAILY JAGDISH Administration Cyanocobalamin 1,000 mcg 10/10/17 10:00 10/10/17 09:38 Vitamin B12 - PO 1,000 mcg DAILY JAGDISH Administration Digoxin 0.125 mg 10/10/17 10:00 10/10/17 09:37 Lanoxin - PO 0.125 mg DAILY JAGDISH Administration Donepezil HCl 10 mg 10/09/17 22:00 10/10/17 21:35 Aricept - PO 10 mg HS JAGDISH Administration Ceftriaxone Sodium 1 gm/ 50 mls @ 100 mls/hr 10/10/17 10:00 10/10/17 09:37 Dextrose IVPB 100 mls/hr DAILY JAGDISH Administration Midodrine 2.5 mg 10/10/17 10:00 10/10/17 09:37 Proamatine - PO 2.5 mg DAILY JAGDISH Administration Morphine Sulfate 1 mg 10/09/17 14:06 Morphine Sulfate IVPUSH Q4H PRN PAIN LEVEL 7 - 10 ASSESSMENT/PLAN:
[2017-10-11 08:57] LABS: INR 1.55 (0.82-1.09); PROTHROMBIN TIME (PATIENT) 17.5 SEC (9.98-11.88)
[2017-10-11] MEDS ORDERED: PT OWN MED DRAWER 7, Y5N ONE (09:52)
[2017-10-11] MEDS ORDERED: cefTRIAXone SODIUM 1 GM VIAL ONE (09:52)
[2017-10-11] MEDS ORDERED: DEXTROSE 5%-WATER - 50 ML IVPB ONE (09:52)
[2017-10-11] MEDS: CITALOPRAM HYDROBROMIDE 10 MG TABLET (FP) PO SCH (09:57)
[2017-10-11] MEDS: DIGOXIN 0.125 MG TABLET (FP) PO SCH (09:57)
[2017-10-11] MEDS: CEFTRIAXONE 1 GM in DEXTROSE 5%-WATER - 50 ML IVPB SCH (09:58)
[2017-10-11] MEDS: MIDODRINE HCL 2.5 MG TABLET PO SCH (09:58)
[2017-10-11] MEDS: CYANOCOBALAMIN 1,000 MCG TABLET (FP) PO SCH (09:59)
[2017-10-11] MEDS ORDERED: POLYETHYLENE GLYCOL 3350 119 GM BTL PO ONE (14:43)
[2017-10-11] MEDS ORDERED: DOCUSATE SODIUM 100 MG CAPSULE (FP) PO SCH (14:45)
[2017-10-11 16:01] VITALS: BP 124/68; PULSE 70; TEMP 98.5
--- NOTE | 2017-10-11 16:13 | PN ---
Teaching Attending Note Name of Resident: Corrine Polk ATTENDING PHYSICIAN STATEMENT I saw and evaluated the patient. I reviewed the resident's note and discussed the case with the resident. I agree with the resident's findings and plan as documented with exceptions below. SUBJECTIVE: patient seen and examined, knee pain better, no new complaints. OBJECTIVE: Vital Signs Period Temp Pulse Resp BP Sys/Potts Pulse Ox Last 24 Hr 98 F-98.5 F 57-72 20-20 123-138/68-78 95-96 Intake & Output 10/08/17 10/09/17 10/10/17 10/11/17 23:59 23:59 23:59 23:59 Intake Total 120 500 550 Balance 120 500 550 Weight 135 lb 141 lb general: sitting in chair in no acute distress Extremities: left brace, improved swelling and tenderness, positive DP pulses ASSESSMENT AND PLAN: 86 yof with pMHx of Bioprosthetic AVR, AFib on coumadin, osteoarthritis, dementia, orthostatic hypotension comes with supratherapeutic INR, left knee pain and swelling, Lower uncomplicated UTI and ?transient atypical Chest pain. -Left knee pain/swelling, ?prepatellar bursitis vs ruptured fuentes's cyst, hemarthrosis secondary to unwitnessed trauma on differential but low suspicion, unlikely septic arthritis given clincally stable, absence of fevers/ leucocoytosis/current knee exam. ?gout vs pseudogout - Lower uncomplicated UTI -Coumadin coagulopathy -?Transient atypical chest pain/dyspnea, neg CTA -Afib -Bioprosthetic AVR -?CHF -Orthostatic hypotension -Osteoarthritis -Dementia Plan: improved symptoms. PT input noted. Knee brace, ice and elevation. WBAT. Resume coumadin 4 mg for now, decrease dose once INR rising. INR tomorrow at SNF. Urine cultures noted, cefuroxime to finish total 7 day course. Continue home meds. D.c to SNF today.
--- NOTE | 2017-10-11 17:18 | DS ---
Physical Exam: SUBJECTIVE: Patient seen and examined OBJECTIVE: Vital Signs Period Temp Pulse Resp BP Sys/Potts Pulse Ox Last 24 Hr 98 F-98.5 F 57-72 20-20 123-138/68-78 95-96 PHYSICAL EXAM GENERAL: The patient is awake, alert, and fully oriented, in no acute distress. HEAD: Normal with no signs of trauma. EYES: PERRL, extraocular movements intact, sclera anicteric, conjunctiva clear. ENT: Ears normal, nares patent, oropharynx clear without exudates, moist mucous membranes. NECK: Trachea midline, full range of motion, supple. LUNGS: Breath sounds equal, clear to auscultation bilaterally, no wheezes, no crackles, no accessory muscle use. HEART: Regular rate and rhythm, S1, S2 without murmur, rub or gallop. ABDOMEN: Soft, nontender, nondistended, normoactive bowel sounds, no guarding, no rebound, no hepatosplenomegaly, no masses. EXTREMITIES: 2+ pulses, warm, well-perfused, no edema. NEUROLOGICAL: Cranial nerves II through XII grossly intact. Normal speech, gait not observed. PSYCH: Normal mood, normal affect. SKIN: Warm, dry, normal turgor, no rashes or lesions noted. LABS Laboratory Results - last 24 hr 10/10/17 10/11/17 10/11/17 17:35 06:17 07:30 PT with INR 17.50 H INR 1.55 H D POC Glucometer 101 98 HOSPITAL COURSE: Date of Admission:10/08/17 Date of Discharge: 10/11/17 Discharge Summary Reason For Visit: URINARY TRACT INFECTION,CHEST PAIN Condition: Stable - Instructions Diet, Activity, Other Instructions: You were admitted to the hospital for pain in your Left knee likely due to bleeding into the joint. Your pain is improved, but you will require some short- term rehabilitation to improve your strength. You were also found to have a UTI and are being treated with antibiotics. Recommendations: -You can do weight bearing activities with your Left knee as tolerated. Work with the physical therapist to increase your strength. -Keep your left knee elevated and with ice packs when you are at rest. Medications: -Continue your regular home medications as directed, including daily Coumadin 4mg, with the following addition: 1) Take Cefuroxime 250mg twice per day for 3 days. Your first dose will be tomorrow morning and your last dose will be in the evening of 10/14. 2) You can take Tylenol 650mg every 6 hours as needed for your knee pain. Do not exceed more than 4 doses (2600mg) per day. Follow-ups: -Have your INR checked tomorrow (10/11). Your doctors may need to adjust your Coumadin dose. -Make an appointment to see your primary care physician in 1 week for post- hospitalization evaluation. Please return to the Emergency Room if you have worsening knee pain, urinary symptoms, fever, chills, or any new or concerning symptoms. Disposition: LONG-TERM FACILITY - Home Medications Comprehensive Discharge Medication List: Ambulatory Orders Chondroitin Sulfate A Sodium [Chondroitin Sulfate Sodium] 500 mg PO DAILY Citalopram Hydrobromide [Celexa -] 10 mg PO DAILY 10/08/17 Cyanocobalamin [Vitamin B12 -] 1,000 mcg PO DAILY 10/08/17 Digoxin [Lanoxin -] 0.125 mg PO DAILY 10/08/17 Donepezil HCl [Aricept] 10 mg PO DAILY 10/08/17 Midodrine HCl 2.5 mg PO DAILY 10/08/17 Warfarin Sodium [Coumadin] 4 mg PO DAILY 10/08/17 Cefuroxime Axetil [Cefuroxime] 500 mg PO BID #6 tablet 10/11/17
[2017-10-11] MEDS ORDERED: WARFARIN NA 3 MG TABLET PO SCH (18:00)
[2017-10-11] MEDS ORDERED: WARFARIN NA 2 MG TABLET (UD) PO SCH (18:00)
== END 2017-10-11 17:07 | DRG 813 ==
LOC: JER 10:49 → JERBED 16:10 → J8W 10-09 14:27
PROVIDERS: ADMIT Hospitalist; ATTEND Hospitalist
DX: D68.32 Hemorrhagic disorder due to extrinsic circulating anticoagulants (principal); N39.0 Urinary tract infection, site not specified; M25.062 Hemarthrosis, left knee; D68.8 Other specified coagulation defects; I48.91 Unspecified atrial fibrillation; M62.89 Other specified disorders of muscle; T45.515A Adverse effect of anticoagulants, initial encounter; I11.0 Hypertensive heart disease with heart failure; I50.9 Heart failure, unspecified; M17.12 Unilateral primary osteoarthritis, left knee; B96.29 Other Escherichia coli [E. coli] as the cause of diseases classified elsewhere; F03.90 Unspecified dementia, unspecified severity, without behavioral disturbance, psychotic disturbance, mood disturbance, and anxiety; Z79.01 Long term (current) use of anticoagulants; E83.39 Other disorders of phosphorus metabolism; I95.1 Orthostatic hypotension; Z95.4 Presence of other heart-valve replacement; R07.89 Other chest pain; M71.22 Synovial cyst of popliteal space [Baker], left knee
CPT/HCPCS: 36415; 71045-TC-FY; 71275-TC; 73523-TC-FY; 73562-TC-LT-FY; 80053; 80162; 81003; 81015; 82550; 82553; 82962; 83735; 83880; 84100; 84484; 85025; 85027; 85610; 85730; 87040; 87086; 87186; 93005; 93010; 93971-TC; 97116-GP; 97161-GP; 99284-25

== ENCOUNTER 2019-01-02 08:29 | Observation (INO) | payer OTHER ==
[2019-01-02 08:37] VITALS: TEMP 98.4; BMI 25.8
--- NOTE | 2019-01-02 08:50 | PDOC ---
History of Present Illness - General Chief Complaint: Injury Stated Complaint: FALL Time Seen by Provider: 01/02/19 08:50 History Source: Patient, Care Provider, Sibling (daughter) Exam Limitations: Dementia - History of Present Illness Initial Comments: 01/02/19 09:08 Sendy Storey is a 88yF with PMHx of frontotemporal dementia, arthritis, a fib on coumadin, and congestive heart failure presenting with head trauma s/p fall. Unable to provide history due to confusion. Per nursing facility, staff found her on the bathroom floor at 2am bleeding from her head. Unknown how long she was on the floor. Found awake and alert. Confused and unable to follow instructions at baseline. Last fall was 1 week ago along with a diagnosed UTI which she was treated for. Her daughter recently switched her medication celexa to remeron 10d ago Past History - Travel Traveled outside of the country in the last 30 days: No Close contact w/someone who was outside of country & ill: No - Past Medical History Allergies/Adverse Reactions: Allergies Allergy/AdvReac Type Severity Reaction Status Date / Time No Known Allergies Allergy Verified 01/02/19 08:37 Home Medications: Ambulatory Orders Cyanocobalamin [Vitamin B12 -] 1,000 mcg PO DAILY 10/08/17 Digoxin [Lanoxin -] 0.125 mg PO DAILY 10/08/17 Donepezil HCl [Aricept] 10 mg PO DAILY 10/08/17 Midodrine HCl 2.5 mg PO DAILY 10/08/17 Warfarin Sodium [Coumadin] 4 mg PO ASDIR 10/08/17 Acetaminophen [Tylenol] 325 mg PO PRN PRN 01/02/19 Cefdinir 300 mg PO BID 01/02/19 Gabapentin [Neurontin] 100 mg PO BID 01/02/19 Mirtazapine [Remeron -] 15 mg PO DAILY 01/02/19 Cardiac Disorders: Yes (afib) COPD: No Dementia: Yes (frontotemboral) HTN: Yes - Surgical History Cardiac Surgery: Yes (aortic valve replacement) Neurologic Surgery: No - Suicide/Smoking/Psychosocial Hx Smoking History: Never smoked Have you smoked in the past 12 months: No Information on smoking cessation initiated: No Hx Alcohol Use: No Drug/Substance Use Hx: No Substance Use Type: None Hx Substance Use Treatment: No Review of Systems - Review of Systems Able to Perform ROS?: No (dementia) Is the patient limited Mongolian proficient: Yes *Physical Exam - Vital Signs Last Vital Signs Temp Pulse Resp BP Pulse Ox 98.4 F 58 L 16 129/53 L 98 01/02/19 08:32 01/02/19 08:32 01/02/19 08:32 01/02/19 08:32 01/02/19 08:32 - Physical Exam General Appearance: Yes: Appropriately Dressed, Mild Distress HEENT: positive: SHANTELL, Normal Voice, Other (1cm bloody laceration over left zoroastrianism). negative: Nasal Congestion Respiratory/Chest: positive: Lungs Clear, Normal Breath Sounds. negative: Chest Tender, Respiratory Distress, Crackles, Rales, Rhonchi, Stridor, Wheezing Cardiovascular: positive: Regular Rate, S1, S2, Bradycardia. negative: Edema, Murmur Gastrointestinal/Abdominal: positive: Normal Bowel Sounds, Tender (moderate tenderness to palpation RUQ, RLQ, suprapubic region), Flat, Soft, Rebound (L suprapubic region). negative: Organomegaly, Mass Extremity: negative: Tender, Pedal Edema Integumentary: positive: Normal Color. negative: Jaundice, Pale, Cold, Rash, Swelling, Ecchymosis, Bruising Neurologic: positive: Alert, Normal Mood/Affect, Confused, Disoriented, Other ( cannot assess d/t dementia) ED Treatment Course - LABORATORY CBC & Chemistry Diagram: 01/02/19 07:55 01/02/19 07:55 Medical Decision Making - Medical Decision Making 01/02/19 09:35 CT head, c-spine clear head bleed, CT abdomen for AB pain EKG showed sinus bradycardia with left axis deviation. CBC, chem, cardiac profile, UA w cx, ekg, CPK, PT/INR UA +nitrate, 3+ leuk est CBC chem normal INR 4.1 (on coumadin) pelvis, knee XR negative fracture CT abdomen showed R hepatic lobe cyst 7mm, diverticulosis coli in sigmoid colon w/o evidence of acute proces Sendy Storey is a 88yF with PMHx of frontotemporal dementia, arthritis, a fib on coumadin, and congestive heart failure presenting with head trauma s/p fall. CT head negative for fracture or bleed. CT C-spine cleared for fracture. CT abdomen showed R hepatic lobe cyst 7mm, diverticulosis coli in sigmoid colon w/ o evidence of acute process. EKG showed sinus bradycardia with left axis deviation. CBC, CMP normal. Pelvis and knee XR negative for fracture. UTI diagnosed with urinalysis +nitrate and 3+ leukocyte esterase. INR elevated at 4.1 (on coumadin). Admitted to floor for workup for head trauma due to syncope vs mechanical fall based on history of recent frequent falls, medication change, and cardiac hx. Also treatment of UTI and correction of INR *DC/Admit/Observation/Transfer Diagnosis at time of Disposition: Head injury due to trauma Qualifiers: Encounter type: initial encounter Qualified Code(s): S09.90XA - Unspecified injury of head, initial encounter - Discharge Dispostion Condition at time of disposition: Stable Decision to Admit order: Yes - Referrals - Patient Instructions - Post Discharge Activity
--- NOTE | 2019-01-02 10:07 | PDOC ---
Documentation entered by Tyrel Kay SCRIBE, acting as scribe for Gerry Carr MD. Gerry Carr MD: This documentation has been prepared by the Rahul vegas Elijah, SCRIBE, under my direction and personally reviewed by me in its entirety. I confirm that the documentation accurately reflects all work, treatment, procedures, and medical decision making performed by me. Attending Attestation - Resident Resident Name: Niraj Penn - ED Attending Attestation I have performed the following: I have examined & evaluated the patient, The case was reviewed & discussed with the resident, I agree w/resident's findings & plan, Exceptions are as noted - HPI HPI: 01/02/19 09:58 88 F with h/o dementia, afib on coumadin, CHF, presenting to ED after being found down at [place]. Pt has no recollection of fall. Family is with pt and states no one witnessed the fall. Pt denies any complaints at this time. Family states she is at her baseline mentation. Pt has reportedly been having frequent falls at [place] after her medications were changed. Family does not know the exact nature of these falls. Does not know if she is syncopizing or not. Pt is being tx'ed for UTI currently but family does not know which abx she is on. - Physicial Exam PE: 01/02/19 10:01 GENERAL: Awake, alert, in no acute distress. HEAD: + 0.5 cm lac to L [place] EYES: PERRLA, EOMI, sclera anicteric, conjunctiva clear ENT: Auricles normal inspection, hearing grossly normal, nares patent, oropharynx clear without exudates. Moist mucosa NECK: Nontender, no stepoffs, Normal ROM, supple, no lymphadenopathy, JVD, or masses LUNGS: Breath sounds equal, clear to auscultation bilaterally. No wheezes, and no crackles HEART: Regular rate and rhythm, normal S1 and S2, no murmurs, rubs or gallops ABDOMEN: Soft, nontender, normoactive bowel sounds. No guarding, no rebound. No masses EXTREMITIES: Normal range of motion, no edema. No clubbing or cyanosis. No cords, erythema, or tenderness NEUROLOGICAL: Cranial nerves II through XII intact. 5/5 strength and sensation in all extremities, Normal speech, normal gait, normal cerebellar function SKIN: Warm, Dry, normal turgor, no rashes or lesions noted. - Medical Decision Making 01/02/19 10:03 88 F with fall at [place]. Mechanism unclear, as pt has no recollection and fall was unwitnessed. Will perform syncope work up. Pt also being tx'ed for UTI so will evaluate for infecitous process. Pt with no neuro deficits on exam to suggest CVA. - Labs - EKG - CT head/c-spine
[2019-01-02 10:50] LABS: BASO % 0.8 % (0-2.0); EOS % 4.6 % (0-4.5); HEMATOCRIT 38.5 % (32.4-45.2); HEMOGLOBIN 12.7 GM/dL (10.7-15.3); LYMPH % 21.3 % (8-40); MCH 31.1 pg (25.7-33.7); MCHC 33.1 g/dl (32.0-36.0); MEAN CELL VOLUME 94.1 fl (80-96); MEAN PLT VOLUME 8.5 fl (7.5-11.1); MONO % 8.4 % (3.8-10.2); NEUT % 64.9 % (42.8-82.8); PLATELET COUNT 219 K/MM3 (134-434); PROTHROMBIN TIME (PATIENT) 50.2 SEC (9.7-13.0); RBC 4.09 M/mm3 (3.60-5.2); RDW 14.9 % (11.6-15.6); WHITE BLOOD COUNT 7.3 K/mm3 (4.0-10.0)
[2019-01-02 11:02] LABS: EPI CELLS 0.2 /HPF (0-5/HPF); HYALINE CASTS 1 /lpf (0-8); URINE APPEARANCE CLOUDY; URINE BACTERIA 1631.6 /hpf (NEGATIVE); URINE BILIRUBIN NEGATIVE (NEGATIVE); URINE COLOR YELLOW; URINE GLUCOSE (UA) NEGATIVE (NEGATIVE); URINE KETONE NEGATIVE (NEGATIVE); URINE LEUK ESTERASE 3+ (NEGATIVE); URINE NITRITE POSITIVE (NEGATIVE); URINE PROTEIN NEGATIVE (NEGATIVE); URINE RBC 3 /hpf (0-4); URINE UROBILINOGEN 0.2 mg/dL (0.2-1.0); URINE WBC 266 /hpf (0-5)
[2019-01-02 11:15] LABS: ALBUMIN 2.9 g/dl (3.4-5.0); ALK PHOS 65 U/L (45-117); ANION GAP 5 MMOL/L (8-16); BILIRUBIN,TOTAL 1.3 mg/dL (0.2-1); BLOOD UREA NITROGEN 18.4 mg/dL (7-18); CALCIUM 8.1 mg/dL (8.5-10.1); CHLORIDE 108 mmol/L (98-107); CO2 30 mmol/L (21-32); CREATININE 0.8 mg/dL (0.55-1.3); GLUCOSE,RANDOM 82 mg/dL (74-106); POTASSIUM 4.4 mmol/L (3.5-5.1); SGOT/AST 26 U/L (15-37); SGPT/ALT 15 U/L (13-61); SODIUM 143 mmol/L (136-145); TOT PROT 6.3 g/dl (6.4-8.2)
[2019-01-02 12:08] LABS: INR 4.19 (0.83-1.09)
[2019-01-02 13:56] VITALS: BP 128/76; PULSE 53
--- NOTE | 2019-01-02 15:04 | HP ---
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 Pt is on coumadin and has had recurrent falls almost everyday with prior LLE bruises x2 over the past week and other major falls more frequnetly over the past 6 months. For the past month, pt has worsened to the extent of not being able to manipulate a walker to assist her and requires 2 person assist in addition to the walker. She was recently started on cefdinir (12/28) for a UTI at [facility] and was found to have a positive UA in the ED with supratherapeutic INR. 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 The daughter- Maryan who is the health care proxy provided the hx by the bedside as the pt was AAOx3 when I saw her not recalling her own name. Per Maryan, she had attempted to make the pt DNH in addition to DNR/DNI and no tube feeds before Mother's day, but was unable to get the paper work completed prior to today. Per Maryan, her goal for the Pt at this time is for "Comfort care". Maryan is open to palliative/hospice care and would like to return to [facility] today to update the documentation and proceed to comfort care. ER course was notable for: (1) INR-4.19, UA- positive nitrites, LE3+, WBC-266, bacteria-1613.6 (2) CT head/spine, CTAP, xray knees- did not show any new acute pathology (3) EKG-56bpm, sinus juanito, LBBB, Q waves v1, v2, LAD, QTC-422 Recent Travel: PAST MEDICAL HISTORY: PAST SURGICAL HISTORY: Social History: Smoking: Alcohol: Drugs: Family History: Allergies No Known Allergies Allergy (Verified 01/02/19 08:37) HOME MEDICATIONS: Home Medications Medication Instructions Recorded Cyanocobalamin [Vitamin B12 -] 1,000 mcg PO DAILY 10/08/17 Digoxin [Lanoxin -] 0.125 mg PO DAILY 10/08/17 Donepezil HCl [Aricept] 10 mg PO DAILY 10/08/17 Midodrine HCl 2.5 mg PO DAILY 10/08/17 Warfarin Sodium [Coumadin] 4 mg PO ASDIR 10/08/17 Acetaminophen [Tylenol] 325 mg PO PRN PRN 01/02/19 Cefdinir 300 mg PO BID 01/02/19 Gabapentin [Neurontin] 100 mg PO BID 01/02/19 Mirtazapine [Remeron -] 15 mg PO DAILY 01/02/19 REVIEW OF SYSTEMS Unable to obtain due to dementia PHYSICAL EXAMINATION Vital Signs - 24 hr 01/02/19 01/02/19 01/02/19 08:32 11:31 13:55 Temperature 98.4 F Pulse Rate 58 L Pulse Rate [ 53 L Left] Respiratory 16 17 Rate Blood Pressure 129/53 L Blood Pressure 128/76 [Left Arm] O2 Sat by Pulse 98 97 99 Oximetry (%) GENERAL: Awake, not oriented to person, place or time. Did not know her name. HEAD: L front laceration clean dry above L eye about 2cm well apposed, no active bleeding noted EARS, NOSE, THROAT: Moist mucous membranes. NECK: supple LUNGS: Breath sounds equal, clear to auscultation bilaterally. HEART: S1 and S2 ABDOMEN: Soft, nontender, not distended, normoactive bowel sounds, no guarding, MUSCULOSKELETAL: Hypertonic lower extremities. Could not elicit CVA tenderness. LOWER EXTREMITIES: 2+ pulses, warm, well-perfused. No peripheral edema. NEUROLOGICAL: Demented PSYCHIATRIC: Labile mood, laughing earlier, then starting to cry CBC, BMP 01/02/19 07:55 01/02/19 07:55 Laboratory Results - last 24 hr 01/02/19 01/02/19 01/02/19 07:55 07:55 07:55 WBC 7.3 RBC 4.09 Hgb 12.7 Hct 38.5 MCV 94.1 MCH 31.1 MCHC 33.1 RDW 14.9 Plt Count 219 D MPV 8.5 Absolute Neuts (auto) 4.7 Neutrophils % 64.9 Lymphocytes % 21.3 D Monocytes % 8.4 Eosinophils % 4.6 H D Basophils % 0.8 Nucleated RBC % 0 PT with INR 50.20 H INR 4.19 H* Sodium 143 Potassium 4.4 Chloride 108 H Carbon Dioxide 30 Anion Gap 5 L BUN 18.4 H Creatinine 0.8 Est GFR (CKD-EPI)AfAm 76.83 Est GFR (CKD-EPI)NonAf 66.29 Random Glucose 82 Calcium 8.1 L Total Bilirubin 1.3 H AST 26 ALT 15 Alkaline Phosphatase 65 Creatine Kinase 102 Troponin I < 0.02 Total Protein 6.3 L Albumin 2.9 L Urine Color Urine Appearance Urine pH Ur Specific [place] Urine Protein Urine Glucose (UA) Urine Ketones Urine Blood Urine Nitrite Urine Bilirubin Urine Urobilinogen Ur Leukocyte Esterase Urine WBC (Auto) Urine RBC (Auto) Urine Casts (Auto) U Epithel Cells (Auto) Urine Bacteria (Auto) 01/02/19 10:25 WBC RBC Hgb Hct MCV MCH MCHC RDW Plt Count MPV Absolute Neuts (auto) Neutrophils % Lymphocytes % Monocytes % Eosinophils % Basophils % Nucleated RBC % PT with INR INR Sodium Potassium Chloride Carbon Dioxide Anion Gap BUN Creatinine Est GFR (CKD-EPI)AfAm Est GFR (CKD-EPI)NonAf Random Glucose Calcium Total Bilirubin AST ALT Alkaline Phosphatase Creatine Kinase Troponin I Total Protein Albumin Urine Color Yellow Urine Appearance Cloudy Urine pH 7.0 Ur Specific [place] 1.017 Urine Protein Negative Urine Glucose (UA) Negative Urine Ketones Negative Urine Blood Trace Urine Nitrite Positive H Urine Bilirubin Negative Urine Urobilinogen 0.2 Ur Leukocyte Esterase 3+ H Urine WBC (Auto) 266 Urine RBC (Auto) 3 Urine Casts (Auto) 1 U Epithel Cells (Auto) 0.2 Urine Bacteria (Auto) 1631.6 ASSESSMENT/PLAN: Pt is an 88 yo F with PMHx of frontotemporal dementia, arthritis, a fib and 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 #S/p traumatic head injury Concern as pt was supratherapeutic on warfarin Unclear if patient syncopized or had a mechanical fall Per daughter pt has more of a scissor gait now, with poor posture and unable to manipulate a walker Imaging studies negative for bleed or fracture #R/O syncope Sinus Bradycardia on EKG, no AVB, LBBB picture (similar to prior EKG) Px on digoxin Dig level-0.3505 low, not likely dig toxicity #UTI Positive UA inED Pt already on treatment cefdinir in [place] #Recurrent falls Pt documented with multiple falls in [place] Has been working with PT but with worsening functional status daily May not be a candidate for AC #Frontotemporal dementia Pt started on mirtazipine With recent fall Fell after one dose of ativan in past #arthritis, Likely contributing to falls Hypertonic and with some tenderness during exam On gabapentin #a fib and 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 She wants the patient brought back to [facility] to get MOLST form adjusted in that regard. D/W Dr Eldridge in charge at [facility] who is willing to accept pt and adjust MOLST form. Talked with SW and patient can be set up to go back today D/c plan and summary will be prepared Visit type - Emergency Visit Emergency Visit: Yes ED Registration Date: 01/02/19 Care time: The patient presented to the Emergency Department on the above date and was hospitalized for further evaluation of their emergent condition. - New Patient This patient is new to me today: Yes Date on this admission: 01/02/19 - Critical Care Critical Care patient: No
--- NOTE | 2019-01-02 15:32 | DS ---
Physical Exam: SUBJECTIVE: Patient seen and examined, oriented to self only, crying, "im scared ". Unable to do meaningful ROS. OBJECTIVE: Vital Signs Period Temp Pulse Resp BP Sys/Potts Pulse Ox Last 24 Hr 98.4 F 53-58 16-17 128-129/53-76 97-99 Intake & Output 12/30/18 12/31/18 01/01/19 01/02/19 23:59 23:59 23:59 23:59 Weight 160 lb PHYSICAL EXAM GENERAL: oriented to self only, no acute distress Neck: soft, supple, no JVD CVS:S1s2 irregular Chest: poor effort, no rales or wheezing Abdomen:Soft, NT, ND, pos bowel sounds, no grimacing on CVA or flank palpation Extremities: no edema HEENT: Left foreheard 1 cm horizontal laceration with no active bleed Neuro: AA, oriented to self, facial symmetry, moves all extremities freely, further exam limited LABS Laboratory Results - last 24 hr 01/02/19 01/02/19 01/02/19 07:55 07:55 07:55 WBC 7.3 RBC 4.09 Hgb 12.7 Hct 38.5 MCV 94.1 MCH 31.1 MCHC 33.1 RDW 14.9 Plt Count 219 D MPV 8.5 Absolute Neuts (auto) 4.7 Neutrophils % 64.9 Lymphocytes % 21.3 D Monocytes % 8.4 Eosinophils % 4.6 H D Basophils % 0.8 Nucleated RBC % 0 PT with INR 50.20 H INR 4.19 H* Sodium 143 Potassium 4.4 Chloride 108 H Carbon Dioxide 30 Anion Gap 5 L BUN 18.4 H Creatinine 0.8 Est GFR (CKD-EPI)AfAm 76.83 Est GFR (CKD-EPI)NonAf 66.29 Random Glucose 82 Calcium 8.1 L Total Bilirubin 1.3 H AST 26 ALT 15 Alkaline Phosphatase 65 Creatine Kinase 102 Troponin I < 0.02 Total Protein 6.3 L Albumin 2.9 L Urine Color Urine Appearance Urine pH Ur Specific [place] Urine Protein Urine Glucose (UA) Urine Ketones Urine Blood Urine Nitrite Urine Bilirubin Urine Urobilinogen Ur Leukocyte Esterase Urine WBC (Auto) Urine RBC (Auto) Urine Casts (Auto) U Epithel Cells (Auto) Urine Bacteria (Auto) 01/02/19 10:25 WBC RBC Hgb Hct MCV MCH MCHC RDW Plt Count MPV Absolute Neuts (auto) Neutrophils % Lymphocytes % Monocytes % Eosinophils % Basophils % Nucleated RBC % PT with INR INR Sodium Potassium Chloride Carbon Dioxide Anion Gap BUN Creatinine Est GFR (CKD-EPI)AfAm Est GFR (CKD-EPI)NonAf Random Glucose Calcium Total Bilirubin AST ALT Alkaline Phosphatase Creatine Kinase Troponin I Total Protein Albumin Urine Color Yellow Urine Appearance Cloudy Urine pH 7.0 Ur Specific [place] 1.017 Urine Protein Negative Urine Glucose (UA) Negative Urine Ketones Negative Urine Blood Trace Urine Nitrite Positive H Urine Bilirubin Negative Urine Urobilinogen 0.2 Ur Leukocyte Esterase 3+ H Urine WBC (Auto) 266 Urine RBC (Auto) 3 Urine Casts (Auto) 1 U Epithel Cells (Auto) 0.2 Urine Bacteria (Auto) 1631.6 CT head: IMPRESSION: Moderate atrophy and periventricular chronic microvascular ischemic disease changes. No acute intracranial pathology is identified. Correlate clinically to determine further evaluation and follow-up. CT C-spine: IMPRESSION: The alignment is satisfactory. No gross fracture or subluxation is seen. No jumped facets or prevertebral soft tissue swelling are identified. Multilevel degenerative disc disease with anterior and posterior spur formation as well as bilateral uncovertebral hypertrophy, as described above CT A/P: IMPRESSION: Mild bibasal atelectatic changes and minimal bilateral pleural effusion. Likely tiny right hepatic lobe cyst measuring 7 mm. Otherwise, the liver and spleen appear unremarkable. There is no evidence of small bowel obstruction. Nonvisualization of the appendix. Diverticulosis coli mainly in the sigmoid colon without evidence of acute diverticulitis. No CT evidence of an acute process is identified in the abdomen and pelvis. Correlate clinically to determine further evaluation and follow-up HOSPITAL COURSE: Date of Admission:01/02/19 Date of Discharge: 01/02/19 Minutes to complete discharge: 40 Discharge Summary Reason For Visit: SYNCOPE Current Active Problems Head injury due to trauma (Acute) Hospital Course: 88 yof with PMHx of frontotemporal dementia, arthritis, a fib and AVR with Bioprosthetic AVR (Over 10 years) on coumadin, and HTN, major depressive disorder, HTN, constipation admitted with unwitnessed fall and left forehead laceration. Trauma w/u in the ED was negative. She was noted with UTI and is currently on treatment at the care home. Her INR was elevated and coumadin will need to be held. Patient had Advance directives from [facility] stating DNR/DNI/No feeding tubes. Patient's health care proxy daughter Evelina, expressed clear wishes for her mother to be comfort measures and to be DNH (Do not hospitalize). [facility] was contacted and will arrange for hospice to evaluate the patient. care home MD Dr. Eldridge was notified and agreable to accept patient back. Daughter agreed to the plan for patient to return back to Nursing and continued goals of discussion including hospice and DNH. Condition: Stable - Instructions Diet, Activity, Other Instructions: You were sent to the Emergency department with unwitnessed fall and bleeding from forehead You had trauma work up in the ED including CT head, C-spine and abdomen/pelvis that were negative for concerns. Your health care proxy expressed wishes for comfort measures and DO NOT Hospitalize. Your care home MD Dr. Eldridge has been informed and is in agreement with the plan to accept you back at the facility and hospice follow up and ongoing discussion to address further goals of care MEDICATIONS: YOUR INR WAS ELEVATED, PLEASE HOLD YOUR COUMADIN, CHECK LEVELS IN 1-2 DAYS, AND RESUME WHEN INR < 2 Continue all your other. medications. Please ensure that you antibiotics have been adjusted to your urine tests sent at the [facility]. Address further continuation of warfarin and other medications based on the goals of care FOLLOW UP: Hospice follow up at the Facility Address Comfort measures and DO NOT HOSPITALIZE, per wishes expressed by your health care proxy. Referrals: Casper Eldridge MD [Primary Care Provider] - [facility]position: [facility] - Home Medications Comprehensive Discharge Medication List: Ambulatory Orders Cyanocobalamin [Vitamin B12 -] 1,000 mcg PO DAILY 10/08/17 Digoxin [Lanoxin -] 0.125 mg PO DAILY 10/08/17 Donepezil HCl [Aricept] 10 mg PO DAILY 10/08/17 Midodrine HCl 2.5 mg PO DAILY 10/08/17 Warfarin Sodium [Coumadin] 4 mg PO ASDIR 10/08/17 Acetaminophen [Tylenol] 325 mg PO PRN PRN 01/02/19 Cefdinir 300 mg PO BID 01/02/19 Gabapentin [Neurontin] 100 mg PO BID 01/02/19 Mirtazapine [Remeron -] 15 mg PO DAILY 01/02/19 This patient is new to me today: Yes Date on this admission: 01/02/19 Emergency Visit: Yes ED Registration Date: 01/02/19 Care time: The patient presented to the Emergency Department on the above date and was hospitalized for further evaluation of their emergent condition. Critical Care patient: No - Discharge Referral Referred to [facility] Med [facility].C.: No
--- NOTE | 2019-01-03 14:48 | EKG ---
Test Reason : Blood Pressure : / mmHG Vent. Rate : 056 BPM Atrial Rate : 056 BPM P-R Int : 176 ms QRS Dur : 128 ms QT Int : 438 ms P-R-T Axes : 057 -48 025 degrees QTc Int : 422 ms SINUS BRADYCARDIA LEFT AXIS DEVIATION LEFT ANTERIOR FASCICULAR BLOCK SEPTAL INFARCT ABNORMAL ECG Confirmed by MD ELISEO, LEXY ([id number]) on 01/03/2019 2:48:08 PM Referred By: Confirmed By:LEXY GOMES MD
== END 2019-01-02 19:00 ==
LOC: JER 08:29 → JERBED 12:51 → J4W 14:49
PROVIDERS: ADMIT Hospitalist; ATTEND Hospitalist
DX: S09.8XXA Other specified injuries of head, initial encounter (principal); S01.81XA Laceration without foreign body of other part of head, initial encounter; W18.39XA Other fall on same level, initial encounter; Y93.89 Activity, other specified; Y92.121 Bathroom in nursing home as the place of occurrence of the external cause; Y99.8 Other external cause status; I25.10 Atherosclerotic heart disease of native coronary artery without angina pectoris; I11.0 Hypertensive heart disease with heart failure; I50.9 Heart failure, unspecified; I48.91 Unspecified atrial fibrillation; Z79.01 Long term (current) use of anticoagulants; Z95.4 Presence of other heart-valve replacement; G31.09 Other frontotemporal neurocognitive disorder; F02.80 Dementia in other diseases classified elsewhere, unspecified severity, without behavioral disturbance, psychotic disturbance, mood disturbance, and anxiety; M12.9 Arthropathy, unspecified; F33.9 Major depressive disorder, recurrent, unspecified; D68.8 Other specified coagulation defects; K59.00 Constipation, unspecified; Z87.440 Personal history of urinary (tract) infections; Z79.2 Long term (current) use of antibiotics; Z91.81 History of falling
CPT/HCPCS: 36415; 70450-TC; 72125-TC; 72170-TC-FY; 73562-TC-RT-FY; 74177-TC; 80053; 81003; 82550; 84484; 85025; 85610; 87086; 87186; 93005; 93010; 99284-25; G0378